=== PATIENT | male | born 1950 | race Caucasian/White ===

== ENCOUNTER 2020-11-23 17:04 | Observation (INO) | payer MEDICARE, OTHER, SELFPAY ==
[2020-11-23] VITALS (9 sets, daily range): BP systolic 119–150; BP diastolic 72–94; PULSE 77–108; RESP 15–24; TEMP 36.3; O2SAT 95–100; BMI 31.6
--- NOTE | ~2020-11-23 | US_ITS ---
EXAMINATION: US carotid duplex BI EXAM DATE: 11/24/2020 11:17 INDICATION: Facial weakness, dysphasia. TECHNIQUE: Grayscale, color and pulsed Doppler images of the cervical carotid arteries were obtained . The degree of vessel stenosis is placed in one of the following categories: normal, <50% stenosis, 50-69% stenosis, >=70% stenosis but less than near-occlusion, near-occlusion, or occlusion. Note that percent stenosis relative to normal distal artery lumen diameter is indirectly measured from velocit y measurements as described by Trevor, et al. Radiology 2003; 229:340-346. There is no prior study fo r comparison. FINDINGS: RIGHT SIDE: Right common carotid artery peak systolic velocity (PSV in cm/s): 80 Right bulb/internal carotid artery peak systolic velocity (PSV in cm/s): 57 Right internal carotid artery end diastolic velocity (EDV in cm/s): 20 Right ICA/CCA peak systolic ratio: 0.7 Right external carotid artery peak systolic velocity (PSV in cm/s): 70 Right vertebral artery antegrade flow: yes There is no focal plaque identified. LEFT SIDE: Left common carotid artery peak systolic velocity (PSV in cm/s): 85 Left bulb/internal carotid artery peak systolic velocity (PSV in cm/s): 64 Left internal carotid artery end diastolic velocity (EDV in cm/s): 22 Left ICA/CCA peak systolic ratio: 0.7 Left external carotid artery peak systolic velocity (PSV in cm/s): 91 Left vertebral artery antegrade flow: yes There is minimal carotid bulb plaque. Velocity and Doppler waveforms in the common and internal carotid arteries is normal. IMPRESSION: 1. Normal right internal carotid artery. 2. Less than 50 percent stenosis in the left internal carotid artery. Reviewed, dictated and finalized at location B.
--- NOTE | ~2020-11-23 | CT_ITS ---
EXAMINATION: CT brain wo con DATE: 11/23/2020 18:27 INDICATION: Slurred speech. TECHNIQUE: Computed tomography (CT) of the head was performed without intravenous contrast. The mA wa s adjusted according to patient size. Iterative reconstruction technique was employed. The dose-lengt h product was 681.00 mGy-cm. COMPARISON: None FINDINGS: There is no intracranial hemorrhage, acute infarction, or abnormal intracranial mass lesion . The ventricles are normal in size. There are likely changes of ocular lens replacement surgeries. T here is mild mucosal thickening in the paranasal sinuses. The mastoid air cells are normal. IMPRESSION: 1. Normal brain. Reviewed, dictated and finalized at location A. IMPRESSION: 1. Normal brain.
--- NOTE | ~2020-11-23 | CT_ITS ---
EXAMINATION: CT soft tissue neck w con DATE: 11/23/2020 18:27 INDICATION: Tongue swelling. Abscess. TECHNIQUE: Computed tomography (CT) of the neck was performed with 75 mL Omnipaque-350 intravenous co ntrast. Automated exposure control and iterative reconstruction technique were employed. The dose-leida gth product was 600.79 mGy-cm. COMPARISON: None FINDINGS: There are likely changes of ocular lens replacement surgeries. There are no pathologically enlarged lymph nodes. There is mild plaque in the proximal internal carotid arteries with 0% stenosis relative to normal distal artery lumen diameters. The palatine tonsils and lingual tonsils are raissa l. There is no abscess. There is mild mucosal thickening in the paranasal sinuses. There is moderate cervical spondylosis. IMPRESSION: 1. No abscess. Reviewed, dictated and finalized at location A. IMPRESSION: 1. No abscess.
--- NOTE | ~2020-11-23 | MR_ITS ---
EXAMINATION: MR brain/brain stem wo/w con EXAM DATE: 11/25/2020 10:29 INDICATION: Facial weakness, difficulty speaking. TECHNIQUE: Magnetic resonance imaging (MRI) of the brain/brain stem obtained without contrast. Sagit jaylen T1, axial diffusion, gradient echo (T2*), T1, T2, FLAIR sequences obtained. Patient was then inj ected with 20 cc intravenous Multihance contrast. Axial and coronal postcontrast T1 weighted sequence s obtained. Correlation is made to head CT from 11/23/2020. FINDINGS: There are no areas of restricted diffusion to suggest acute infarction. There is no acute hemorrhage seen on the T2*, a hemosiderin sensitive sequence. No intraparenchymal brain mass lesion. There is mild periventricular and subcortical T2/FLAIR signal hyperintensity, nonspecific but probab ly related to small vessel ischemic disease (microangiopathy). There is mild prominence of the sulc i and ventricles related to cerebral atrophy. There are no extra-axial collections. Flow voids are seen in the cerebral arteries on the T2-weighted sequences consistent with their expected patency. Patient has had bilateral ocular lens surgery. Soft tissue is unremarkable. There are no areas of a bnormal enhancement on the postcontrast images. IMPRESSION: 1. No acute intracranial findings. 2. Mild age related findings. Reviewed, dictated and finalized at location B.
--- NOTE | ~2020-11-23 | XR_ITS ---
EXAMINATION: XR chest 2V DATE: 11/24/2020 10:58 INDICATION: Aspiration TECHNIQUE: PA and lateral views of the chest were obtained. COMPARISON: None FINDINGS: Streaky opacities at the left costophrenic angle and favor atelectasis over aspiration or pneumonia. Calcified nodule at the posterior medial right lung base consistent with old granulomatous disease. N o pulmonary edema, pleural effusion or pneumothorax. The cardiomediastinal silhouette is normal. Mild thoracic kyphosis with minimal likely physiologic anterior wedging at a couple lower thoracic verteb ral bodies. Mild thoracic spondylosis. IMPRESSION: 1. Mild streaky opacities at the left costophrenic angle and favor atelectasis over aspiration or pne umonia. Reviewed, dictated and finalized at location A. IMPRESSION: 1. Mild streaky opacities at the left costophrenic angle and favor atelectasis over aspiration or pneumonia.
[2020-11-23] MEDS: SODIUM CHLORIDE 0.9% IV 500 ML 999 ML IV CONT (17:39)
[2020-11-23] MEDS: FAMOTIDINE 20 MG/2 ML VIAL IV PUSH ×2 (17:40→21:39)
[2020-11-23 17:44] LABS: Basophils Absolute Auto 0.1 K/mm3 (0.0-0.1); Basophils Percent Auto 0.8 % (0.2-1.2); Eosinophils Absolute Auto 0.2 K/mm3 (0-0.3); Eosinophils Percent Auto 2.5 % (0-4.4); Hematocrit 49.2 % (42.0-52.0); Hemoglobin 17.1 g/dL (14.0-18.0); Immature Granulocyte Absolute 0.02 K/mm3 (0.00-0.031); Immature Granulocyte Percent A 0.2 % (0-0.5); Lymphocytes Absolute Auto 2.55 K/mm3 (0.9-3.2); Lymphocytes Percent Auto 27.3 % (18.3-44.2); Mean Corpuscular HGB Conc 34.8 g/dl (32-36); Mean Corpuscular Hemoglobin 31.5 pg (26-34); Mean Corpuscular Volume 90.8 fl (80-100); Mean Platelet Volume 9.6 fl (7.4-10.4); Monocytes Absolute Auto 0.7 K/mm3 (0.1-0.6); Monocytes Percent Auto 7.1 % (2.6-8.5); Neutrophils Absolute Auto 5.8 K/mm3 (1.3-6.7); Neutrophils Percent Auto 62.1 % (45.5-73.1); Platelet Count Result 180 k/mm3 (150-375); Red Blood Count 5.42 M/mm3 (4.6-6.20); Red Cell Distribution Width 12.9 % (11.5-14.5); White Blood Count 9.3 K/mm3 (4.5-10.0)
[2020-11-23] MEDS: diphenhydrAMINE HCl INJ 50 MG/ML VIAL 25 MG IV PUSH (17:51)
[2020-11-23 17:54] LABS: Alanine Aminotransferase 35 U/L (4-50); Albumin Level 4.7 g/dL (3.5-5.1); Alkaline Phosphatase 45 U/L (38-126); Anion Gap 11 mmol/L (8-16); Aspartate Amino Transferase 38 U/L (17-59); Bilirubin,Total 0.9 mg/dL (0.2-1.3); Blood Urea Nitrogen 12 mg/dL (9-20); Calcium 9.6 mg/dL (8.4-10.2); Carbon Dioxide 24 mmol/L (22-30); Chloride 105 mmol/L (98-107); Estimated CRCL calculation 80 ml/min; Estimated Glomerular Filt Rate > 60; Glucose 111 mg/dL (75-110); INR 1.1; Potassium 3.8 mmol/L (3.4-5.0); Prothrombin Time 14.3 Seconds (11.1-14.7); Sodium 140 mmol/L (137-145)
[2020-11-23 17:55] LABS: Partial Thromboplastin Time 35.5 SECONDS (22.3-36.8)
[2020-11-23 18:08] LABS: Add Urine Microscopic? YES; Appearance Urine Clear (Clear); Bilirubin Urine Negative (Negative); Blood Urine Negative (Negative); Color Urine Yellow (Yellow); Glucose Urine UA 3+ mg/dL (Negative); Ketones Urine 1+ mg/dL (Negative); Leukocyte Esterase Ur Negative LEU/UL (Negative); Nitrate Urine Negative (Negative); Protein Urine Negative (Negative); RBC Urine 0-2 /hpf (0-2); Specific Grav Ur 1.018 (1.001-1.035); Urobilinogen Urine Negative mg/dL (<2.0); WBC Urine 0-3 /hpf
--- NOTE | 2020-11-23 19:00 | PC.NURSE ---
Assumed care of pt. at this time. Report from OCTAVIO Mullins
--- NOTE | 2020-11-23 19:42 | ED.GENADULT ---
HPI - General Adult General Chief complaint: Allergic Reaction Stated complaint: allergic reaction Time Seen by Provider: 11/23/20 17:11 Source: patient Mode of arrival: ambulatory Limitations: no limitations History of Present Illness HPI narrative: Patient is a 70-year-old male who for the last 3 weeks has had progressive difficulty with speaking and swallowing patient was seen by his primary care and had an urgent care and was thought that he may have thrush patient denies similar occurrence or history of thrush or any obvious causes for thrush patient is a diabetic and has had well-controlled sugars and denies other significant past medical history patient on arrival has muffled speech that worsens with more speaking or movement of the jaw. Patient notes that he has had difficulty with eating and swallowing and often has to even try and push the food from his jaws to where he can swallow. Patient has only been seen in urgent care and by primary care for this. Patient has been taking oral antifungals with no improvement Related Data Allergies Allergy/AdvReac Type Severity Reaction Status Date / Time No Known Allergies Allergy Verified 11/23/20 19:48 Review of Systems Review of Systems: All systems reviewed & are unremarkable except as noted in HPI and below PMFSH Past Medical History Medical History Diabetes mellitus Social History Social History (Updated 11/23/20 @ 19:46 by Jono Fallon PA-C) Smoking status: Never smoker Gender identity (if verbalized by the patient): Male Exam Narrative: Exam Narrative: GENERAL: Well-appearing, well-nourished, and in no acute distress. HEAD: Normocephalic, atraumatic. EYES: PERRLA and EOMI. ENT: Nares clear, no rhinorrhea or epistaxis. Mucous membranes moist. Oropharynx without tonsillar hypertrophy exudate or other lesions. NECK: Supple. No adenopathy or masses. No carotid bruits or JVD CHEST: Clear to auscultation. No respiratory distress. No wheezes rales or rhonchi HEART: Regular rate and rhythm. No murmur heard. Normal peripheral pulses. ABDOMEN: Soft, nontender, nondistended EXTREMITIES: Normal range of motion. No edema. SKIN: Warm, dry, no rash. NEURO: No focal deficits. Alert and oriented x3. Cranial nerves II through XII grossly intact. Speech becomes muffled with increased speaking and then improves with rest. Cerebellar intact. Motor and sensory intact and symmetrical in extremities. PSYCH: Normal mood and affect. Course Course Emergency Course: Patient presented with findings that appear to be more consistent with neurologic dysfunction opposed to thrush such as myasthenia gravis patient will be placed in hospital with neurological evaluation to the hospitalist team. Patient agrees with this. Patient hemodynamically stable at this time with ABCs intact. Case was discussed with the hospitalist who is agreed to accept the patient. Consultations Consultation #1: Discussed case with the neurologist Dr. Pritchard who recommends MRI of the brain and will work the patient up for myasthenia and other neurologic and autoimmune causes patient will also have a swallow study This case with the hospitalist lisa who is agreed to accept the patient Date: 11/23/20 Time: 19:48 Vital Signs Vital signs: Vital Signs Temperature 97.3 F L 11/23/20 17:11 Pulse Rate 108 H 11/23/20 17:11 Respiratory Rate 20 11/23/20 17:11 Blood Pressure 150/94 H 11/23/20 17:11 Pulse Oximetry 100 11/23/20 17:11 Temperature 97.3 F L 11/23/20 17:11 Pulse Rate 81 11/23/20 19:22 Respiratory Rate 19 11/23/20 19:22 Blood Pressure 130/77 11/23/20 19:22 Pulse Oximetry 96 11/23/20 19:22 Medical Decision Making MDM Narrative Medical decision making narrative: Patient presented with muffled speech with concern for neurologic or autoimmune dysfunction patient is hemodynamically stable resting comfortabl
--- NOTE | 2020-11-23 19:50 | ECG_ITS ---
Measurements Intervals [place] Rate: 85 P: 2 VA: 166 QRS: -28 QRSD: 106 T: 1 QT: 371 QTc: 441 Interpretive Statements SINUS RHYTHM BORDERLINE T WAVE ABNORMALITY- INFERIOR LEADS BORDERLINE ECG Electronically Signed On 11-24-2020 6:20:33 CDT by Pedro Quiroga D.O.
--- NOTE | 2020-11-23 20:48 | ADMGEN ---
This patient, Sudarshan Kim, was admitted to Medical Room 251-. Patient/family oriented to hospital policies and general routines including ID bracelet, bed and alarms, visiting hours, pain management, procedures, bathroom and other care routines, personal items, smoking policy, room service/diet, and visiting hours. Information on how to activate the Rapid Response Team has been discussed. Patient/Family are encouraged to report perceived risks to care and to ask questions if they do not understand what they are told or what they should do.
[2020-11-23] MEDS: LACTATED RINGERS 1,000 ML 125 ML IV CONT (21:39)
--- NOTE | 2020-11-23 22:40 | PM.IMHP ---
H&P: HPI History of Present Illness Date/Time: 11/23/20 22:40 The patient is a 70 yo male who present to the ED with progressive difficulty with speech and drooling and pooling of saliva since apst 3 weeks. he reports the symptoms are intermittent. It gets gradually gets worse as the day goes by. He typically feels normal in the morning. He had been to the urgent care witht eh issue and thought it was related to thrush and was treated for the same. He has hx of diabetes but its pretty well controlled. He rpeots no weakness in arms or legs, no fever, chills, sob, chest pain, no lymph glands. He rpeorts he progressively get difficulty in swaallowing and also chewing. often has to even try and push the food from his jaws. he also notes difficulty in protruding his tongue out of his mouth,which normally he can do that. Chief Complaint: difficulty speaking Review of Systems Review of Systems: Narrative: - CONSTITUTIONAL: Denies weight loss, fever and chills. - HEENT: Denies changes in vision and hearing - RESPIRATORY: Denies SOB and cough. - CV: Denies palpitations and CP. - GI: Denies abdominal pain, nausea, vomiting and diarrhea. - : Denies dysuria and urinary frequency. - MSK: Denies myalgia and joint pain. - SKIN: Denies rash and pruritus. - NEUROLOGICAL: Denies headache and syncope. - PSYCHIATRIC: Denies recent changes in mood. Denies anxiety and depression. All systems reviewed & are unremarkable except as noted in HPI and below PMFSH Past Medical History Medical History Diabetes mellitus Family History Family History (Updated 11/23/20 @ 21:10 by Marta Montelongo RN) Father Cerebrovascular accident Social History Social History (Updated 11/23/20 @ 19:46 by Jono Fallon PA-C) Smoking status: Never smoker Alcohol intake: never Substance use: never Substance use type: does not use Gender identity (if verbalized by the patient): Male Spiritual care concerns: No Meds Home Medications and Allergies Home Medications Medication Instructions Recorded Confirmed Type Cialis 2 mg PO DAILY 11/23/20 11/23/20 History clotrimazole 10 mg MUCOUS MEMBRANE USEASDIRECTD 11/23/20 11/23/20 History dulaglutide [Trulicity] 1.5 mg SUBCUT WEEKLY 11/23/20 11/23/20 History empagliflozin [Jardiance] 25 mg PO DAILY 11/23/20 11/23/20 History fluconazole 100 mg PO DAILY 11/23/20 11/23/20 History ipratropium bromide 1 spray INTRANASAL PRN PRN 11/23/20 11/23/20 History metformin 2,000 mg PO DAILY 11/23/20 11/23/20 History Allergies Allergy/AdvReac Type Severity Reaction Status Date / Time No Known Allergies Allergy Verified 11/23/20 19:48 Vital Signs Vital Signs - 24 hr 11/23/20 17:11 11/23/20 17:40 11/23/20 18:35 Temperature 97.3 F L Pulse Rate 108 H 98 90 Respiratory Rate 20 15 24 H Blood Pressure 150/94 H 119/72 138/89 Pulse Oximetry 100 95 99 11/23/20 19:22 11/23/20 20:21 11/23/20 21:40 Temperature 97.3 F L Pulse Rate 81 89 83 Respiratory Rate 19 20 16 Blood Pressure 130/77 138/88 150/83 H Pulse Oximetry 96 98 99 Exam Narrative: Exam Narrative: GENERAL: Well-appearing, well-nourished, and in no acute distress. HEAD: Normocephalic, atraumatic. EYES: PERRLA, left eye with midly weak abduction ENT: Nares clear, no rhinorrhea or epistaxis. Mucous membranes moist. Oropharynx with left tonsillar pillar swellig noted, no exudate noted NECK: Supple. No adenopathy or masses. No carotid bruits or JVD CHEST: Clear to auscultation. No respiratory distress. No wheezes rales or rhonchi HEART: Regular rate and rhythm. No murmur heard. Normal peripheral pulses. ABDOMEN: Soft, nontender, nondistended EXTREMITIES: Normal range of motion. No edema. SKIN: Warm, dry, no rash. NEURO: No focal deficits. Alert and oriented x3. Speech becomes muffled with increased speaking and then improves with rest. Cerebellar intact. Mot
[2020-11-23 22:51] LABS: Glucose Point of Care 113 (65-105)
[2020-11-23 23:34] LABS: Free T4 Free Thyroxine 0.93 ng/mL (0.78-2.19)
[2020-11-24] VITALS (11 sets, daily range): BP systolic 115–135; BP diastolic 66–81; PULSE 73–95; RESP 14–22; TEMP 36–36.4; O2SAT 94–100
--- NOTE | 2020-11-24 | ECHO_ITS ---
Patient Info Name: Sudarshan Kim Age: 70 years : 1950 Gender: Male Ht: 73 in Wt: 239 lbs BSA: 2.39 m2 HR: 86 bpm BP: 130 / 69 mmHg Technical Quality: Good Exam Date: 11/24/2020 12:04 PM Exam Location: [facility] Exam Room: 251 Patient Status: Inpatient Admit Date: 11/23/2020 Staff Ordering Physician: Arlen Jackson NP Power Press Operator: Ananbel Nolasco RDCS Attending Provider: Arlen Jackson NP Referring Physician: Manuel STOCKTON; Exam Type: CA echo doppler color flow Study Info Indications - facial weakness dysphagia Complete two-dimensional, color flow and Doppler transthoracic echocardiogram is performed. Summary 1. Complete two-dimensional, color flow and Doppler transthoracic echocardiogram is performed. 2. Left ventricular chamber dimension is normal. 3. Left ventricular systolic function is normal, estimated at 60-65%. 4. The left ventricular diastolic function is grade I diastolic dysfunction. 5. E/e' 11 is mildly elevated. 6. Left atrial chamber dimension is moderately enlarged. 7. There is mild aortic valve sclerosis. 8. There is mild mitral valve regurgitation. 9. No pulmonary hypertension, estimated pulmonary arterial systolic pressure is 27 mmHg. Left Ventricle E/e' 11 is mildly elevated. Left ventricular chamber dimension is normal. Left ventricular systolic function is normal, estimated at 60-65%. The left ventricular diastolic function is grade I diastolic dysfunction. Right Ventricle Right ventricular chamber dimension is normal. Right ventricular systolic function is normal. Left Atria Left atrial chamber dimension is moderately enlarged. Right Atria Right atrial chamber dimension is normal. Aortic Valve The aortic valve is trileaflet. There is mild aortic valve sclerosis. There is no aortic valve stenosis. There is no aortic valve regurgitation. Pulmonic Valve There is no pulmonic regurgitation. Mitral Valve There is no mitral valve stenosis. There is mild mitral valve regurgitation. Tricuspid Valve There is no tricuspid valve regurgitation. No pulmonary hypertension, estimated pulmonary arterial systolic pressure is 27 mmHg. Pericardium/Pleural There is no pericardial effusion. Inferior Vena Cava Inferior vena cava is not well visualized. Aorta The aortic root size at the sinus of Valsalva is normal. Left Ventricular Outflow Tract Name Value Normal LVOT 2D LVOT Diameter 2.1 cm LVOT Doppler LVOT Peak Gradient 4 mmHg LVOT Mean Gradient 3 mmHg LVOT VTI 22 cm LVOT VTI/AV VTI Ratio 0.9 LVOT Stroke Volume 74 ml LVOT CO 15.7 l/min LVOT CI 6.6 l/min/m2 Pulmonic Valve Name Value Normal PV Doppler
[2020-11-24 05:36] LABS: Basophils Absolute Auto 0.1 K/mm3 (0.0-0.1); Basophils Percent Auto 0.6 % (0.2-1.2); Eosinophils Absolute Auto 0.2 K/mm3 (0-0.3); Eosinophils Percent Auto 2.6 % (0-4.4); Hematocrit 45.5 % (42.0-52.0); Hemoglobin 15.4 g/dL (14.0-18.0); Immature Granulocyte Absolute 0.02 K/mm3 (0.00-0.031); Immature Granulocyte Percent A 0.3 % (0-0.5); Lymphocytes Absolute Auto 2.16 K/mm3 (0.9-3.2); Lymphocytes Percent Auto 27.2 % (18.3-44.2); Mean Corpuscular HGB Conc 33.8 g/dl (32-36); Mean Corpuscular Hemoglobin 31.1 pg (26-34); Mean Corpuscular Volume 91.9 fl (80-100); Mean Platelet Volume 9.5 fl (7.4-10.4); Monocytes Absolute Auto 0.7 K/mm3 (0.1-0.6); Monocytes Percent Auto 9.1 % (2.6-8.5); Neutrophils Absolute Auto 4.8 K/mm3 (1.3-6.7); Neutrophils Percent Auto 60.2 % (45.5-73.1); Platelet Count Result 155 k/mm3 (150-375); Red Blood Count 4.95 M/mm3 (4.6-6.20); White Blood Count 7.9 K/mm3 (4.5-10.0)
[2020-11-24 05:52] LABS: Alanine Aminotransferase 30 U/L (4-50); Alkaline Phosphatase 34 U/L (38-126); Anion Gap 7 mmol/L (8-16); Aspartate Amino Transferase 29 U/L (17-59); Bilirubin,Total 0.7 mg/dL (0.2-1.3); Blood Urea Nitrogen 11 mg/dL (9-20); Calcium 8.7 mg/dL (8.4-10.2); Carbon Dioxide 26 mmol/L (22-30); Chloride 106 mmol/L (98-107); Estimated CRCL calculation 80 ml/min; Estimated Glomerular Filt Rate > 60; Glucose 101 mg/dL (75-110); Potassium 3.9 mmol/L (3.4-5.0); Sodium 139 mmol/L (137-145)
[2020-11-24 06:19] LABS: Glucose Point of Care 106 (65-105)
[2020-11-24] MEDS: FAMOTIDINE 20 MG/2 ML VIAL IV PUSH ×2 (08:20→20:21)
[2020-11-24] MEDS: LACTATED RINGERS 1,000 ML 75 ML IV CONT (08:20)
[2020-11-24 08:39] LABS: Lactic Acid Reflex 1.7 mmol/L (0.7-2.1)
[2020-11-24 08:53] LABS: Ammonia 10 umol/L (9-30)
--- NOTE | 2020-11-24 10:03 | PM.IMPN ---
Progress Note: A&P Assessment and Plan (1) Dysphagia: Code(s): R13.10 - Dysphagia, unspecified Status: Acute Assessment and Plan: Speech difficulty: intermittent. Progressively worsening as day or level of activity progresses. Protruding tongue, dysphagia, swallowing and chewing difficulty, Slurred speech, pooling of saliva and drooling. suspicious for myasthenia gravis. Family history: father passed at 85yo from CVA. ACh R ab ordered and pending. GORAN pending. Group A strep pending. Immunology pending. Appreicate and following Neurology recommendations. patient reports A1C was 7.3 on November 21 TSH was 3.[address] head is normal. MRI brain WWO contrast ordered. Received his 2nd Moderna COVID vaccination on October 12, then on October 28 his family/son and the patient noticed that he was slurring and drooling at dinner. He tried to F/U with Urgent care and his PCP for treatment - but with no resolution. UA clear, LFTs ok. Pyridostigmine QID started. Nursing staff reported to me that he seemed to improve with the first dose today. Continue telemetry and monitoring. (2) Dysarthria: Code(s): R47.1 - Dysarthria and anarthria Status: Acute Assessment and Plan: It is important to time his Pyridostigmine QID to be given 15-30 minutes prior to his 3-4 meals or snacks. Will need patient education prior to discharge regarding this, so he understands timing and effects of this medication to his lifestyle. (3) Speech abnormality: Code(s): R47.9 - Unspecified speech disturbances Status: Acute Assessment and Plan: suspicious for myasthenia gravis. treating as such consulting PT/OT/ST with new diagnosis. Subjective Date/time seen: 11/24/20 10:03 Sudarshan reports having his 2nd Moderna vaccine on October 12. Then on October 28 he went out to dinner with his son. That's when his family as well as himself noticed that he was having slurred speech difficulty with drooling and excess or uncontrolled saliva. Today he continues to have these same symptoms and stated that his mouth felt like he had had a dental procedure, as if it had been numbed with a local numbing medication for dental work. Sudarshan's stated that when he 1st wakes up in the morning, the symptoms are very mild are non-existent. But the more he talks or the more he exerts himself or his activity level increases, the symptoms worsen progressively. He has no deficits noted in his arms or legs or base motor skills. His vision and eyes are not affected. Ordered ECHO and Carotid Dopplers for today. Neurologist started medication Pyridostigmine QID and will get MRI. He may improve in 30-60 minutes and improvements may last 3-4 hours, until next dose. Patient will remain hospitalized for the further testing and to monitor effects of medication. Continue Telemetry monitoring. Neurologist during treatment for Myasthenia Gravis. Will monitor to see how patient tolerates new medication. Review of Systems Review of Systems: All systems reviewed & are unremarkable except as noted in HPI and below Constitutional: Constitutional: Reports as per HPI, Denies excessive sweating, Denies headache(s), Denies increased appetite, Denies snoring and Denies weight gain Eyes: Eyes: Reports as per HPI, Denies exophthalmos, Denies diplopia, Denies floaters and Denies loss of peripheral vision ENT: Reports as per HPI, Reports Normal hearing present, Denies facial pain, Denies headache(s), Denies mouth pain, Denies odynophagia, Denies tinnitus and Reports other (drooling, saliva pooling,slurred speech) Cardiovascular: Cardiovascular: Reports as per HPI, Denies chest pain, Denies lightheadedness and Denies dyspnea Respiratory: Respiratory: Reports as per HPI, Denies chest congestion, Denies cough, Denies hemoptysis and Denies snoring Gastrointestinal: Gastrointestinal: Reports as per HPI, Denies melena and Denies odynophagia Genitourinary: Genitourinary:
--- NOTE | 2020-11-24 10:57 | WPDNEURCNPN ---
Assessment and Plan Assessment and plan (1) Myasthenia gravis: Code(s): G70.00 - Myasthenia gravis without (acute) exacerbation Status: Acute Additional Plan history of speech dysfunction in addition to swallowing difficulties particularly as the day goes on in addition to the history of underlying diabetes mellitus and the clinical examination today is compatible with bilateral ptosis more prominent on the right as compared to the left in addition to somewhat dysphonic speech findings are suggestive of neuromuscular dysfunction the investigations have been order and the patient will be started on Mestinon 1 tab 3 times a day to seizure response in the meantime we will obtain the x-ray of the chest, MRI of the brain to rule out the possibility of brain stem involvement and further adjustment will be done according Consult date: 11/24/20 Time Seen: 10:30 HPI: Sudarshan Kim is a 70 year old male admitted to the hospital through the emergency room with the complaints of progressive difficulties in speech and drooling and pooling of saliva over the last several weeks of intermittent nature and getting gradually worse as the day goes by typically feels normal in the morning has been to the urgent care where he has been treated for the possible thrush in addition he does have ongoing history of diabetes is fairly well controlled he did not complain of any weakness of upper or lower extremities but he did complain of progressively getting swallowing difficulties and chewing and at times has to push the foot from his jaw, has no history of smoking drinking or substance abuse has been taking multiple medications which include the clotrimazole , [place] andjardiance. pertinent investigation up until non to the CT scan of the head and soft tissue of the neck, normal routine blood studies, INR 1.1 [facility] Past Medical History Medical History Diabetes mellitus Family History Family History Father Cerebrovascular accident Social History Social History Smoking status: Never smoker Alcohol intake: never Substance use: never Substance use type: does not use Gender identity (if verbalized by the patient): Male Spiritual care concerns: No Meds Home Medications and Allergies Home Medications Medication Instructions Recorded Confirmed Type Cialis 2 mg PO DAILY 11/23/20 11/23/20 History clotrimazole 10 mg MUCOUS MEMBRANE USEASDIRECTD 11/23/20 11/23/20 History dulaglutide [Trulicity] 1.5 mg SUBCUT WEEKLY 11/23/20 11/23/20 History empagliflozin [Jardiance] 25 mg PO DAILY 11/23/20 11/23/20 History fluconazole 100 mg PO DAILY 11/23/20 11/23/20 History ipratropium bromide 1 spray INTRANASAL PRN PRN 11/23/20 11/23/20 History metformin 2,000 mg PO DAILY 11/23/20 11/23/20 History Allergies Allergy/AdvReac Type Severity Reaction Status Date / Time clotrimazole Allergy Swelling Verified 11/24/20 02:04 Vital Signs Vital Signs - 24 hr 11/23/20 17:11 11/23/20 17:40 11/23/20 18:35 Temperature 36.3 C L Pulse Rate 108 H 98 90 Respiratory Rate 20 15 24 H Blood Pressure 150/94 H 119/72 138/89 Pulse Oximetry 100 95 99 11/23/20 19:22 11/23/20 20:21 11/23/20 21:40 Temperature 36.3 C L Pulse Rate 81 89 83 Respiratory Rate 19 20 16 Blood Pressure 130/77 138/88 150/83 H Pulse Oximetry 96 98 99 11/23/20 22:47 11/23/20 22:52 11/23/20 23:12 Temperature Pulse Rate 77 Respiratory Rate 16 Blood Pressure Pulse Oximetry 99 11/24/20 00:00 11/24/20 02:00 11/24/20 02:45 Temperature 36.3 C L Pulse Rate 80 86 Respiratory Rate 21 H 14 Blood Pressure 134/66 Pulse Oximetry 100 11/24/20 04:00 11/24/20 06:00 11/24/20 08:00 Temperature 36.4 C Pulse Rate 73 83 95 Respiratory Rate 20 Blood Pressure 129/68 Pulse Oximetry 99 Exam Const:
[2020-11-24 12:26] LABS: Glucose Point of Care 86 (65-105)
[2020-11-24 16:27] LABS: Glucose Point of Care 156 (65-105)
[2020-11-24 21:16] LABS: Glucose Point of Care 136 (65-105)
[2020-11-25] VITALS: BP 103/51; PULSE 78; PULSE 88; RESP 20; TEMP 36.4; O2SAT 99
[2020-11-25 03:23] VITALS: RESP 16
[2020-11-25 04:00] VITALS: BP 115/70; PULSE 78; PULSE 86; RESP 20; TEMP 36.3; O2SAT 97
[2020-11-25 05:57] LABS: Anion Gap 5 mmol/L (8-16); Blood Urea Nitrogen 11 mg/dL (9-20); Calcium 8.8 mg/dL (8.4-10.2); Carbon Dioxide 29 mmol/L (22-30); Chloride 104 mmol/L (98-107); Estimated CRCL calculation 73 ml/min; Estimated Glomerular Filt Rate > 60; Glucose 120 mg/dL (75-110); Sodium 138 mmol/L (137-145)
[2020-11-25 08:00] VITALS: PULSE 81
[2020-11-25] MEDS: FAMOTIDINE 20 MG/2 ML VIAL IV PUSH (08:35)
[2020-11-25 09:04] LABS: Glucose Point of Care 127 (65-105)
[2020-11-25 10:00] VITALS: BP 124/71; PULSE 80; RESP 16; TEMP 36.8; O2SAT 99
--- NOTE | 2020-11-25 11:32 | PM.DS ---
DS: Admitting Diagnosis Admitting Diagnosis Admitting Diagnosis: Dysarthria DS: Discharge Diagnosis Discharge Diagnosis (1) Myasthenia gravis: Code(s): G70.00 - Myasthenia gravis without (acute) exacerbation Status: Acute Assessment and Plan: Symptom onset 10/28/2020. Patient presented with intermittent dysphagia and dysarthria which typically worsened throughout the day as level of activity progressed. Symptoms were concerning for myasthenia gravis and was treated as such. Acute CVA ruled out by negative head CT and brain MRI, echocardiogram, and carotid Doppler. He was seen in consultation by Neurology and pyridostigmine was initiated QID. He did have symptomatic improvement with initiation of medication. AChR, GORAN, and serum immunofixation pending. He will need close neurology follow-up as an outpatient. (2) Dysphagia: Code(s): R13.10 - Dysphagia, unspecified Status: Acute Assessment and Plan: [place] to be secondary to suspected myasthenia gravis. Speech therapy eval performed with no evidence of aspiration. Symptomatic improvement with medication as above. (3) Vaccine reaction: Code(s): T50.Z95A - Adverse effect of other vaccines and biological substances, initial encounter Status: Acute Assessment and Plan: Patient received second dose of Moderna COVID-19 vaccination on 10/12/20 and developed neurologic symptoms on 10/28/20. I spoke with neurologist who recommended reporting of symptoms to [facility], which I will initiate. (4) Diabetes mellitus: Code(s): E11.9 - Type 2 diabetes mellitus without complications Status: Inactive Assessment and Plan: A1c is 7.3. Blood sugars controlled. Continue metformin, jardiance, and trulicity. DS: Summary Hospital Course Reason for hospitalization: Dysarthria, dysphagia Hospital Course: Date of admission: 11/23/2020 Date of discharge: 11/25/2020 Sudarshan Kim is a 70-year-old male with a history of diabetes mellitus who presented to the emergency department on 11/23/2020 with progressive difficulty with speaking and swallowing. He has been seen by provider in urgent care as well as his primary care provider and treated for thrush given his diabetes with no improvement of his symptoms. Noted that his symptoms became worse throughout the day a more fatigued. Upon presentation to the ED was mildly additional vital signs CBC and BMP, urinalysis without signs of infection, head CT negative for any acute findings and soft tissue 90 CT with no evidence of abscess. He was admitted to the hospitalist service for further evaluation and management and seen in consultation by Neurology. Please see above for further details. His symptoms were felt to be consistent with myasthenia gravis. He was initiated on medication for such with symptomatic improvement. Given onset of symptoms in relation to COVID-19 vaccination, report will be made to [facility] per neurology recommendations. He will need to have close follow-up with Neurology. Given his overall improvement, he was determined to no longer require inpatient care and was felt to be stable for discharge. He was very eager for discharge home where he has close family support. We discussed worrisome signs and symptoms for which to return and he was educated on his medications. He was discharged in hemodynamically stable condition on 11/25/2020. Status at Discharge Functional status at discharge: independent ambulation Overall status at discharge: patient is progressing back to baseline Time Spent with Patient Time attestation: Total time spent providing and/or coordinating discharge services: 45 minutes Time spent: Greater than 30 minutes Exam Narrative: Exam Narrative: Mr. Kim is a well-nourished, well-appearing 70-year-old male who is sitting in a chair by the bedside. He appears comfortable and is in NARD. Neuro: awake, alert and oriented x4, CN II-XII intact, s
[2020-12-02 23:42] LABS: Acetylchol Receptor Binding Ab 4.68 nmol/L
--- NOTE | 2020-12-12 17:44 | PC.NURSE ---
Patient called to nurses station with concerns regarding Pyridostigmine [place] medication prescribed by Dr. Pritchard. Per patient, this was prescribed QID to be taken 30 mins prior to meals and at bedtime. Up until now, medication has been helping his myasthenia gravis. However, he took a tablet prior to dinner and is still experiencing slurred speech and troubles swallowing. I called and spoke with Dr. Pritchard regarding patient concerns. Per Dr. Pritchard, patient should take another tablet for dinner, increase dose to 1.5 tabs QID tomorrow (45mg QID), and call office to schedule follow up appointment sooner than previous appt. Called patient back and updated him on Dr. Millan recommendations. Patient verbalized understanding.
== END 2020-11-25 12:28 | disposition home or self-care (01) ==
LOC: ANHED 19:50 → ANH2MED 20:13
PROVIDERS: Emergency Medicine Emergency Medical Services; Nurse Practitioner; Admitting Provider Internal Medicine; Emergency Provider Emergency Medicine; PCP Family Medicine; Visit Provider Physician Assistant
DX: G70.00 Myasthenia gravis without (acute) exacerbation (principal); T50.B95A Adverse effect of other viral vaccines, initial encounter; R13.10 Dysphagia, unspecified; R47.1 Dysarthria and anarthria; R47.9 Unspecified speech disturbances; E11.9 Type 2 diabetes mellitus without complications; I34.0 Nonrheumatic mitral (valve) insufficiency; I35.8 Other nonrheumatic aortic valve disorders; Z79.84 Long term (current) use of oral hypoglycemic drugs
CPT/HCPCS: 36415; 70450; 70491; 70553; 71046; 80048; 80053; 81001; 82140; 82948; 83605; 84238; 84439; 84443; 85025; 85610; 85730; 86038; 86334; 86335; 87880; 92522; 92610; 93005; 93306; 93880; 96361; 96374; 96375; 96376; 99285; A9270; A9577; G0378; J1200; J7040; J7120; Q9967

== ENCOUNTER → 2021-07-31 04:05 | Outpatient (CLI) | payer MEDICARE, SELFPAY ==
[2021-07-31 20:23] LABS: SARS-CoV-2 RNA PCR Positive
== END ==
PROVIDERS: PCP Family Medicine; Visit Provider Family Medicine
DX: U07.1 COVID-19 (principal)
CPT/HCPCS: C9803; U0003; U0005

== ENCOUNTER 2022-01-27 13:19 | Emergency (ER) | payer MEDICARE, SELFPAY ==
--- NOTE | ~2022-01-27 | US_ITS ---
EXAMINATION:US venous doppler LE LT INDICATION:Left leg swelling TECHNIQUE: Multiple grayscale, color flow and Doppler images of the left lower extremity deep venous systems were obtained and reviewed. COMPARISON:No prior studies for comparison. FINDINGS: There is deep venous thrombosis of the left femoral and popliteal veins. The remainder of t he left lower extremity veins are patent. IMPRESSION: 1: Deep venous thrombosis of the left femoral and popliteal veins. Reviewed, dictated and finalized at location A.
[2022-01-27 13:33] VITALS: BP 143/92; PULSE 97; RESP 16; TEMP 36.6; O2SAT 96
--- NOTE | 2022-01-27 14:59 | ED.EXTPRO ---
HPI - Extremity Problem General Chief complaint: Extremity Problem,Nontraumatic Stated complaint: left ankle and calf swelling Time Seen by Provider: 01/27/22 14:57 Source: patient Mode of arrival: ambulatory Limitations: no limitations History of Present Illness HPI Narrative: Patient is 71 years old white male drove himself to the ED from home complaining of left lower leg swelling noticed 2 days ago. Patient denies any trauma or anything unusual in his life over the last 2 weeks. Patient also denies any fever, chills, nausea, vomiting, abdominal pain, groin pain, trouble urinating or defecating. Patient reports that he is physically active and he walks almost daily. History of diabetes, myasthenia gravis. Patient does not smoke or drink or uses drugs. Related Data Home Medications Medication Instructions Recorded Confirmed Cialis 2 mg PO DAILY 11/23/20 06/21/21 clotrimazole 10 mg emilio 10 mg mucous membrane USEASDIRECTD 11/23/20 06/21/21 dulaglutide 1.5 mg/0.5 mL 1.5 mg subcut WEEKLY 11/23/20 06/21/21 subcutaneous pen injector (Trulicity) empagliflozin 25 mg tablet 25 mg PO DAILY 11/23/20 06/21/21 (Jardiance) fluconazole 100 mg tablet 100 mg PO DAILY 11/23/20 06/21/21 ipratropium bromide 21 mcg (0.03 1 spray intranasal PRN PRN Nasal 11/23/20 06/21/21 %) nasal spray Congestion metformin 500 mg tablet,extended 2,000 mg PO DAILY 11/23/20 06/21/21 release 24 hr pyridostigmine bromide 30 mg tablet 60 mg PO QID 03/13/21 06/21/21 Allergies Allergy/AdvReac Type Severity Reaction Status Date / Time clotrimazole Allergy Swelling Verified 06/21/21 14:31 Review of Systems Review of Systems: All systems reviewed & are unremarkable except as noted in HPI and below PMFSH Past Medical History Medical History Diabetes mellitus Family History Family History Father Cerebrovascular accident Social History Social History Smoking status: Never smoker Alcohol intake: never Substance use: never Substance use type: does not use Gender identity (if verbalized by the patient): Male Spiritual care concerns: No Exam Narrative: General appearance: Well-developed, well-nourished Skin: Normal color Head: Normocephalic, nontraumatic Eyes: Clear conjunctiva ENT: Oropharynx normal, ears normal, nose normal Neck: Supple, nontender Chest and respiratory: Airway patent, no respiratory distress, no accessory muscle use Heart: Regular rate/rhythm Abdomen: Soft, nontender, no organomegaly, quiet bowel sounds Vascular: Normal peripheral pulses, normal capillary refill. Musculoskeletal: Left lower leg below the knee examination showed diffuse swelling, 2+ edema, diffuse fullness at the calf muscle, no erythema, no bruises, no rash, no warmth, no wound or discharge Neurologic: Alert and oriented ?3, [employer] is normal as tested, no gross motor deficit Course Course Emergency Course: The radiologist, Dr. Kan, reports that patient have deep vein thrombosis distal femoral artery. Vital Signs Vital signs: Vital Signs Temperature 36.6 C 01/27/22 13:33 Pulse Rate 97 01/27/22 13:33 Respiratory Rate 16 01/27/22 13:33 Blood Pressure 143/92 H 01/27/22 13:33 Pulse Oximetry 96 01/27/22 13:33 Oxygen Delivery Room Air 01/27/22 13:33 Temperature 36.6 C 01/27/22 13:33 Pulse Rate 92 01/27/22 17:08 Respiratory Rate 18 01/27/22 17:08 Blood Pressure 140/88 01/27/22 17:08 Pulse Oximetry 98 01/27/22 17:08 Oxygen Delivery Room Air 01/27/22 13:33 [facility] -
[2022-01-27 16:41] LABS: Basophils Percent Auto 0.4 % (0.2-1.2); Eosinophils Absolute Auto 0.1 K/mm3 (0-0.3); Eosinophils Percent Auto 0.5 % (0-4.4); Hematocrit 45.8 % (42.0-52.0); Hemoglobin 15.9 g/dL (14.0-18.0); Immature Granulocyte Absolute 0.02 K/mm3 (0.00-0.031); Immature Granulocyte Percent A 0.2 % (0-0.5); Lymphocytes Absolute Auto 1.53 K/mm3 (0.9-3.2); Lymphocytes Percent Auto 14.7 % (18.3-44.2); Mean Corpuscular HGB Conc 34.7 g/dl (32-36); Mean Corpuscular Hemoglobin 31.9 pg (26-34); Mean Corpuscular Volume 91.8 fl (80-100); Monocytes Absolute Auto 0.5 K/mm3 (0.1-0.6); Monocytes Percent Auto 4.4 % (2.6-8.5); Neutrophils Absolute Auto 8.3 K/mm3 (1.3-6.7); Neutrophils Percent Auto 79.8 % (45.5-73.1); Platelet Count Result 134 k/mm3 (150-375); Red Blood Count 4.99 M/mm3 (4.6-6.20); Red Cell Distribution Width 12.9 % (11.5-14.5); White Blood Count 10.4 K/mm3 (4.5-10.0)
[2022-01-27 16:52] LABS: Alanine Aminotransferase 83 U/L (6-50); Albumin Level 4.4 g/dL (3.5-5.1); Alkaline Phosphatase 55 U/L (38-126); Anion Gap 9 mmol/L (8-16); Aspartate Amino Transferase 40 U/L (17-59); Bilirubin,Total 0.9 mg/dL (0.2-1.3); Blood Urea Nitrogen 14 mg/dL (9-20); Carbon Dioxide 22 mmol/L (22-30); Chloride 105 mmol/L (98-107); Estimated CRCL calculation 108 ml/min; Estimated Glomerular Filt Rate > 60; Glucose 208 mg/dL (65-110); Potassium 3.9 mmol/L (3.4-5.0); Sodium 136 mmol/L (137-145)
[2022-01-27 16:56] LABS: INR 1.2; Partial Thromboplastin Time 33.6 SECONDS (22.3-36.8); Prothrombin Time 14.8 Seconds (11.1-14.7)
[2022-01-27] MEDS: APIXABAN 5 MG TABLET 10 MG PO (17:04)
[2022-01-27 17:08] VITALS: BP 140/88; PULSE 92; RESP 18; O2SAT 98
== END 2022-01-27 17:10 | disposition home or self-care (01) ==
PROVIDERS: Emergency Provider Emergency Medicine; PCP Family Medicine
DX: I82.412 Acute embolism and thrombosis of left femoral vein (principal); I82.432 Acute embolism and thrombosis of left popliteal vein; E11.9 Type 2 diabetes mellitus without complications; Z79.84 Long term (current) use of oral hypoglycemic drugs
CPT/HCPCS: 36415; 80053; 85025; 85610; 85730; 93971; 99284; A9270

== ENCOUNTER 2023-02-08 09:38 | Outpatient (CLI) | payer MEDICARE, SELFPAY ==
[2023-02-08 10:26] LABS: Hematocrit 46.4 % (42.0-52.0); Mean Corpuscular HGB Conc 34.5 g/dl (32-36); Mean Corpuscular Hemoglobin 31.4 pg (26-34); Mean Corpuscular Volume 91.2 fl (80-100); Mean Platelet Volume 10.1 fl (7.4-10.4); Platelet Count Result 175 k/mm3 (150-375); Red Blood Count 5.09 M/mm3 (4.6-6.20); Red Cell Distribution Width 12.6 % (11.5-14.5); White Blood Count 7.1 K/mm3 (4.5-10.0)
[2023-02-08 10:53] LABS: Alanine Aminotransferase 60 U/L (6-50); Albumin Level 4.5 g/dL (3.5-5.1); Alkaline Phosphatase 72 U/L (38-126); Amylase 113 U/L (30-110); Anion Gap 10 mmol/L (8-16); Aspartate Amino Transferase 40 U/L (17-59); Bilirubin,Total 1.2 mg/dL (0.2-1.3); Blood Urea Nitrogen 15 mg/dL (9-20); Carbon Dioxide 26 mmol/L (22-30); Chloride 102 mmol/L (98-107); Estimated Glomerular Filt Rate > 60; Glucose 201 mg/dL (65-110); Lipase 229 U/L (23-300); Potassium 3.8 mmol/L (3.4-5.0); Sodium 138 mmol/L (137-145); Triglycerides 243 mg/dL (<150)
[2023-02-14 11:14] LABS: Immunoglobulin G, Serum 860 mg/dL (600-1540); Immunoglobulin G1 535 mg/dL (382-929); Immunoglobulin G2 246 mg/dL (241-700); Immunoglobulin G3 87 mg/dL (22-178)
== END 2023-02-08 09:39 | disposition home or self-care (01) ==
PROVIDERS: PCP Family Medicine; Visit Provider Nurse Practitioner
DX: K85.90 Acute pancreatitis without necrosis or infection, unspecified (principal); R74.8 Abnormal levels of other serum enzymes
CPT/HCPCS: 36415; 80053; 82150; 82784; 82787; 83690; 84478; 85027

== ENCOUNTER 2023-02-18 10:44 | Outpatient (CLI) | payer MEDICARE, SELFPAY ==
--- NOTE | ~2023-02-18 | US_ITS ---
Limited Abdominal Sonogram: Real-time sonographic imaging of the right upper quadrant was performed. Clinical History: Acute pancreatitis Findings: The liver appears normal with no evidence of mass lesion or bile duct dilatation. Main por jaylen vein demonstrates normal direction of flow. The gallbladder is well distended, and appears normal with no evidence of gallstone or wall thickening. The common bile duct measures 2 mm. The pancreas is obscured by bowel gas shadowing. Impression: No significant abnormality seen. Reviewed, dictated and finalized at location . Impression: No significant abnormality seen.
== END 2023-02-18 10:45 | disposition home or self-care (01) ==
PROVIDERS: PCP Family Medicine; Visit Provider Nurse Practitioner
DX: K85.90 Acute pancreatitis without necrosis or infection, unspecified (principal); R74.8 Abnormal levels of other serum enzymes
CPT/HCPCS: 76705

== ENCOUNTER 2023-03-14 00:21 | Day surgery (SDC) | payer MEDICARE, SELFPAY ==
[2023-02-28 13:16] VITALS: BMI 30.4
[2023-03-14 07:42] VITALS: BP 145/83; PULSE 85; RESP 18; TEMP 36.7; O2SAT 98
[2023-03-14] MEDS: LACTATED RINGERS 1,000 ML 150 ML IV CONT (07:52)
[2023-03-14 07:53] LABS: Glucose Point of Care 186 mg/dl (65-105)
--- NOTE | 2023-03-14 07:56 | P.PNAN_ITS ---
Anes - Initial Pre Proc Eval Procedure: Operation Date: 03/14/23 08:30 Proposed Procedures p Esophagogastroduodenoscopy & Colonoscopy - Dean Hinkle MD Date/Time: 03/14/23 07:56 Surgeon: Dean Hinkle MD Pre Op Diagnosis: nausea, Patient Data Age: 72 Gender: M Height: 1.85 m Weight: 102 kg Last Vital Signs Temp 36.7 C 03/14/23 07:42 Pulse 85 03/14/23 07:42 Resp 18 03/14/23 07:42 BP 145/83 H 03/14/23 07:42 Pulse Ox 98 03/14/23 07:42 O2 Del Method Room Air 03/14/23 07:42 Allergies Allergy/AdvReac Type Severity Reaction Status Date / Time No Known Allergies Allergy Verified 03/14/23 07:40 Home Medications Medication Instructions Recorded Confirmed Type Cialis 5 mg PO DAILY 11/23/20 02/28/23 History clotrimazole 10 mg emilio 10 mg mucous membrane USEASDIRECTD 11/23/20 02/28/23 H istory empagliflozin 25 mg tablet 25 mg PO DAILY 11/23/20 02/28/23 History (Jardiance) ipratropium bromide 21 mcg (0.03 1 spray intranasal PRN PRN Nasal 11/23/20 02/28/23 History %) nasal spray Congestion atorvastatin 20 mg tablet 20 mg PO DAILY 02/08/23 02/28/23 History omeprazole 20 mg capsule,delayed 20 mg PO DAILY #30 caps 02/08/23 02/28/23 Rx release Laboratory Tests 03/14/23 07:47 POC Capillary Glucose 186 H mg/dl (65-105) Patient hx anesthesia problems: none Family hx anesthesia problems: none Results Review: All pre-operative results and documents have been reviewed as part of the pre- operative evaluation. [facility] Past Medical History Medical History Acute pancreatitis Diabetes mellitus Elevated lipase Elevated liver enzymes Epigastric pain Hx of adenomatous colonic polyps Nausea Obesity Family History Family History Father Cerebrovascular accident Social History Social History Smoking status: Never smoker Alcohol intake: never Substance use: never Substance use type: does not use Living arrangements: other Additional living arrangements comments: With so Gender identity (if verbalized by the patient): Male Spiritual care concerns: No Anes - Eval Final PreProcedure Day of Procedure 03/14/23 07:56 Patient weight: overweight Heart: regular rate and rhythm Lungs: clear to auscultation Airway: Mallampati scale class II Neurological: alert and oriented Last oral intake: >/= 8 hours ASA classification: III Emergent: no Anesthetic plan: proceed Anesthesia type and monitoring: general GIVS and standard monitoring Results Review: All pre-operative results and documents have been reviewed as part of the pre- operative evaluation. Informed Consent: The patient's anesthetic plan and its attendant risks and benefits were discussed with the patient/family/POA. Questions were solicited and answers provided to the satisfaction of the patient/family/POA.
--- NOTE | 2023-03-14 08:27 | PM.HPGS ---
History of Present Illness History of Present Illness Consent: Risks, benefits, and alternatives have been discussed and questions answered. Patient agrees to proceed with procedure. Chief complaint: epigastric pain Narrative: Sudarshan Kim is a 72 year old male Presents for EGD. One month ago had epigastric pain. This is now resolved. It was felt he likely had pancreatitis secondary to Trulicity. Patient is had other medical problems including history of COVID and recent treatment for myasthenia gravis. He states these are improving. Patient presents for EGD because of history of epigastric pain 1 month ago. Current weight appetite bowel movements are normal. Family history noncontributory. Patient has a distant history of colon polyp in 2017. At present he does not wish to pursue follow-up colonoscopy at this time. Review of Systems Review of Systems: Review of systems noncontributory. [facility] Past Medical History Medical History Acute pancreatitis Diabetes mellitus Elevated lipase Elevated liver enzymes Epigastric pain Hx of adenomatous colonic polyps Nausea Obesity Family History Family History Father Cerebrovascular accident Social History Social History Smoking status: Never smoker Alcohol intake: never Substance use: never Substance use type: does not use Living arrangements: other Additional living arrangements comments: With so Gender identity (if verbalized by the patient): Male Spiritual care concerns: No Meds Home Medications and Allergies Home Medications Medication Instructions Recorded Confirmed Type Cialis 5 mg PO DAILY 11/23/20 02/28/23 History clotrimazole 10 mg emilio 10 mg mucous membrane USEASDIRECTD 11/23/20 02/28/23 History empagliflozin 25 mg tablet 25 mg PO DAILY 11/23/20 02/28/23 History (Jardiance) ipratropium bromide 21 mcg (0.03 1 spray intranasal PRN PRN Nasal 11/23/20 02/28/23 History %) nasal spray Congestion atorvastatin 20 mg tablet 20 mg PO DAILY 02/08/23 02/28/23 History omeprazole 20 mg capsule,delayed 20 mg PO DAILY #30 caps 02/08/23 02/28/23 Rx release Allergies Allergy/AdvReac Type Severity Reaction Status Date / Time No Known Allergies Allergy Verified 03/14/23 07:40 Vital Signs Vital Signs - 24 hr 03/14/23 07:42 Temperature 98.0 F Pulse Rate 85 Respiratory Rate 18 Blood Pressure 145/83 H Pulse Oximetry 98 Oxygen Delivery Room Air Exam Narrative: Physical exam reveals patient to be alert. Vital signs stable. HEENT exam is unremarkable. Patient is anicteric. Lungs are clear to auscultation and percussion. Heart is without murmur or extra sounds. Abdomen bowel sounds present soft nontender with no organomegaly. Digital external rectal exam normal. Assessment and Plan Assessment and plan (1) Epigastric pain: Code(s): R10.13 - Epigastric pain Status: Acute Assessment and Plan: Patient has a history of epigastric pain 1 month ago this along with nausea has resolved. Presumably related to recent pancreatitis. Plan for EGD to assess more thoroughly. Further recommendations may be given after endoscopy. (2) Hx of adenomatous colonic polyps: Code(s): Z86.010 - Personal history of colonic polyps Status: Acute Assessment and Plan: Patient has a history of adenomatous colon polyps removed from the colon 5 years ago. Follow-up colonoscopy advised in 5 years. This should be arranged electively if patient agrees at some point.
--- NOTE | 2023-03-14 08:41 | SUR.OPER ---
EGD start 844 end 848, Colonoscopy start 853
[2023-03-14 09:06] VITALS: BP 101/63; PULSE 77; RESP 20; O2SAT 98
[2023-03-14 09:16] VITALS: BP 111/74; PULSE 76; RESP 20; O2SAT 98
[2023-03-14 09:26] VITALS: BP 118/76; PULSE 74; RESP 20; O2SAT 98
== END 2023-03-14 09:40 | disposition home or self-care (01) ==
PROVIDERS: PCP Family Medicine; Visit Provider Internal Medicine Gastroenterology
PROC: 0DJ08ZZ Inspection of Upper Intestinal Tract, Via Natural or Artificial Opening Endoscopic (ICD-10-PCS; CPT 43235; principal; 2023-03-14 08:30)
DX: Z12.11 Encounter for screening for malignant neoplasm of colon (principal); K64.8 Other hemorrhoids; K21.00 Gastro-esophageal reflux disease with esophagitis, without bleeding; E11.9 Type 2 diabetes mellitus without complications; Z86.010 Personal history of colon polyps; Z79.84 Long term (current) use of oral hypoglycemic drugs
CPT/HCPCS: 43239; G0105; 82948; 87081; J2704; J7120

== ENCOUNTER 2023-04-22 10:58 | Inpatient (IN) | payer MEDICARE, SELFPAY ==
[2023-04-22] VITALS (20 sets, daily range): BP systolic 103–143; BP diastolic 57–107; PULSE 75–166; RESP 13–20; TEMP 36.1–36.6; O2SAT 95–98; BMI 30.2
--- NOTE | ~2023-04-22 | XR_ITS ---
EXAMINATION: XR chest 1V portable DATE: 04/22/2023 13:08 INDICATION: New onset atrial fibrillation. TECHNIQUE: A single frontal view of the chest was obtained. COMPARISON: Chest 2 views 11/24/2020 FINDINGS: There is mild atelectasis in the lower lung zones. A calcified right lung nodule is consist ent with old granulomatous disease. No pleural effusion or pneumothorax. The heart size is normal. IMPRESSION: 1. Mild atelectasis in the lower lung zones. Reviewed, dictated and finalized at location E.
--- NOTE | 2023-04-22 12:44 | ECG_ITS ---
Measurements Intervals [place] Rate: 151 P: [place]: 0 QRS: -23 QRSD: 80 T: 62 QT: 285 QTc: 452 Interpretive Statements ATRIAL FIBRILLATION WITH RAPID VENTRICULAR RESPONSE BORDERLINE LEFT AXIS DEVIATION [QRS AXIS < -20] ABNORMAL ECG COMPARED TO ECG 11/23/2020 20:14:30 ATRIAL FIBRILLATION REPLACES SINUS RHYTHM Electronically Signed On 04-22-2023 13:39:37 CDT by Scott Egan M.D.
--- NOTE | 2023-04-22 12:45 | ED.ARRPALP ---
HPI - Arrhythmia/Palpitations General Chief Complaint: Arrhythmia/Palpitations Stated Complaint: irregular heart beat Time Seen by Provider: 04/22/23 12:05 History of Present Illness HPI narrative: Patient is a 72-year-old male with a history of hyperlipidemia, GERD, diabetes presenting with irregular heartbeat. Patient states that he had a healthy visit by a nurse from his insurance company this morning. She checked his vitals and told him that his heart rate was irregular. Advised that he come to the ER. States that he felt lightheaded earlier today but otherwise denies complaints. No chest pain or shortness of breath. No numbness or weakness. No fevers, nausea or vomiting, diarrhea, leg swelling lately. Related Data Home Medications Medication Instructions Recorded Confirmed Cialis 5 mg PO DAILY 11/23/20 04/22/23 clotrimazole 10 mg emilio 10 mg mucous membrane USEASDIRECTD 11/23/20 04/22/23 PRN Rash empagliflozin 25 mg tablet 25 mg PO DAILY 11/23/20 04/22/23 (Jardiance) ipratropium bromide 21 mcg (0.03 1 spray intranasal PRN PRN Nasal 11/23/20 04/22/23 %) nasal spray Congestion atorvastatin 10 mg tablet 10 mg PO HS 04/22/23 04/22/23 Allergies Allergy/AdvReac Type Severity Reaction Status Date / Time No Known Allergies Allergy Verified 04/03/23 12:53 Review of Systems Review of Systems: All systems reviewed & are unremarkable except as noted in HPI and below PMFSH Past Medical History Medical History Adenomatous colon polyp Depression Gastroesophageal reflux disease Internal hemorrhoid Myasthenia gravis Obstructive sleep apnea on CPAP Pancreatitis (01/2023) Type 2 diabetes mellitus Surgical History Surgical History (Updated 04/22/23 @ 21:35 by Nalini Pariknson PA-C) History of cataract extraction History of colonoscopy with polypectomy History of tonsillectomy Family History Family History Father Cerebrovascular accident Social History Social History (Updated 04/22/23 @ 21:35 by Nalini Parkinson PA-C) Social History: Surrogate medical decision maker: shadi Burnett. Code status: Full code. Smoking status: Never smoker Alcohol intake: never Substance use: never Substance use type: does not use Lack of Transportation: No Lack of Food: Never True Current Housing: I Have Housing Concerned About Future Housing: No Difficulty Paying Gas/Electric Bills: No Difficulty Paying for Meds: No Currently Unemployed: No Education: Bachelor's Degree Difficulty w/ Childcare or Family Care: No Living arrangements: alone Occupation/Education: retired Spiritual care concerns: No Exam Narrative: GENERAL: Well-appearing, in no acute distress, pleasant and cooperative HEAD: Normocephalic, atraumatic. EYES: PERRLA and EOMI. ENT: Mucous membranes moist. NECK: Supple. CHEST: Clear to auscultation. No respiratory distress. HEART: Tachycardic, irregular rhythm ABDOMEN: Soft, nontender, nondistended EXTREMITIES: Normal range of motion. No edema. SKIN: Warm, dry, no rash. NEURO: Alert and oriented x3. PSYCH: Normal mood and affect. Course Vital Signs Vital signs: Vital Signs Temperature 97.8 F 04/22/23 11:08 Pulse Rate 151 H 04/22/23 11:08 Respiratory Rate 16 04/22/23 11:08 Blood Pressure 118/57 L 04/22/23 11:08 Pulse Oximetry 98 04/22/23 11:08 Oxygen Delivery Room Air 04/22/23 11:08 Temperature 97.3 F L 04/25/23 11:36 Pulse Rate 83 04/25/23 11:36 Respiratory Rate 18 04/25/23 11:36 Blood Pressure 114/77 04/25/23 11:36 Pulse Oximetry 98 04/25/23 11:36 Oxygen Delivery Room Air 04/25/23 08:00 MDM - Arrhythmia/Palpitations MDM Narrative Medical decision making narrative: Patient is a 72-year-old male presenting with an irregular heartbeat. On arrival, patient is tachycardic
[2023-04-22] MEDS: SODIUM CHLORIDE 0.9% IV 1,000 ML 999 ML IV CONT (12:55)
[2023-04-22 12:58] LABS: Basophils Absolute Auto 0.1 K/mm3 (0.0-0.1); Basophils Percent Auto 0.7 % (0.2-1.2); Eosinophils Absolute Auto 0.2 K/mm3 (0-0.3); Hematocrit 48.7 % (42.0-52.0); Hemoglobin 16.8 g/dL (14.0-18.0); Immature Granulocyte Absolute 0.02 K/mm3 (0.00-0.031); Immature Granulocyte Percent A 0.2 % (0-0.5); Lymphocytes Absolute Auto 1.84 K/mm3 (0.9-3.2); Lymphocytes Percent Auto 18.8 % (18.3-44.2); Mean Corpuscular HGB Conc 34.5 g/dl (32-36); Mean Corpuscular Hemoglobin 31.8 pg (26-34); Mean Corpuscular Volume 92.1 fl (80-100); Mean Platelet Volume 11.1 fl (7.4-10.4); Monocytes Absolute Auto 0.7 K/mm3 (0.1-0.6); Monocytes Percent Auto 7.5 % (2.6-8.5); Neutrophils Absolute Auto 6.9 K/mm3 (1.3-6.7); Neutrophils Percent Auto 70.8 % (45.5-73.1); Platelet Count Result 189 k/mm3 (150-375); Red Blood Count 5.29 M/mm3 (4.6-6.20); Red Cell Distribution Width 12.6 % (11.5-14.5); White Blood Count 9.8 K/mm3 (4.5-10.0)
[2023-04-22 12:59] LABS: Appearance Urine Clear (Clear); Bilirubin Urine Negative (Negative); Blood Urine Negative (Negative); Color Urine Yellow (Yellow); Glucose Urine UA 3+ mg/dL (Negative); Ketones Urine 1+ mg/dL (Negative); Leukocyte Esterase Ur Negative LEU/UL (Negative); Nitrate Urine Negative (Negative); Protein Urine Negative (Negative); Urobilinogen Urine 0.2 mg/dL (<2.0); pH Urine 5.5 (5.0-9.0)
[2023-04-22] MEDS: dilTIAZem 100 MG/100 ML 100 MG/100 ML BAG IV CONT (13:02)
[2023-04-22 13:06] LABS: Specific Grav Ur 1.041 (1.001-1.035)
[2023-04-22 13:07] LABS: Add Urine Microscopic? NO
[2023-04-22 13:11] LABS: INR 1.1; Prothrombin Time 14.6 Seconds (11.1-14.7)
[2023-04-22 13:12] LABS: Alanine Aminotransferase 28 U/L (6-50); Albumin Level 4.4 g/dL (3.5-5.1); Alkaline Phosphatase 57 U/L (38-126); Anion Gap 11 mmol/L (8-16); Aspartate Amino Transferase 27 U/L (17-59); Blood Urea Nitrogen 16 mg/dL (9-20); Calcium 8.8 mg/dL (8.4-10.2); Carbon Dioxide 20 mmol/L (22-30); Chloride 104 mmol/L (98-107); Estimated CRCL calculation 75 ml/min; Estimated Glomerular Filt Rate > 60; Glucose 332 mg/dL (65-110); Magnesium 2.2 mg/dL (1.6-2.3); Partial Thromboplastin Time 39.6 SECONDS (22.3-36.8); Phosphorus 3.8 mg/dL (2.5-4.5); Potassium 3.9 mmol/L (3.4-5.0); Sodium 135 mmol/L (137-145)
[2023-04-22 13:23] LABS: Troponin I < 0.012 ng/mL (0.000-0.034)
--- NOTE | 2023-04-22 15:44 | PM.IMHP ---
H&P: HPI History of Present Illness Date/Time: 04/22/23 16:45 Chief Complaint: Rapid and irregular heart rate. Narrative: This is a very pleasant 72-year-old male with history of myasthenia gravis, type 2 diabetes mellitus, hyperlipidemia, GERD, DVT, and sleep apnea who presented to the emergency department via EMS from home for evaluation of a rapid and irregular heart rate. The patient provides the following history. He had what sounds like an insurance physical today and nurse noted that his pulse was rapid and irregular and suggested that he come to the ER. He was found to be in atrial fibrillation with rapid ventricular response and rates in the 150s to 160s on arrival to the emergency department. He was given a bolus of diltiazem and has been started on a diltiazem drip with improvement in his rate. Aside from mild lightheadedness today, he has no symptoms and he specifically denies sensations of racing heart, fluttering, palpitations, and shortness of breath. He goes on to say that this is not necessarily unusual for him to feel lightheaded your and there, which he attributes to his age. He has no known history of cardiac disease or dysrhythmia. He states compliance with his CPAP. He drinks an awful lot a caffeine (2 to 4 cups of coffee a day in addition to soda and tea). No significant alcohol use. Labs were reviewed and aside from a random glucose of 332, they were pretty unremarkable. Chest x-ray showed mild atelectasis in the lower lung zones. He is being admitted in this setting for further treatment and evaluation. [facility] Past Medical History Medical History (Updated 04/22/23 @ 21:38 by Nalini Parkinson PA-C) Adenomatous colon polyp Depression Gastroesophageal reflux disease Internal hemorrhoid Myasthenia gravis Obstructive sleep apnea on CPAP Pancreatitis (01/2023) Type 2 diabetes mellitus Surgical History Surgical History (Updated 04/22/23 @ 21:35 by Nalini Parkinson PA-C) History of cataract extraction History of colonoscopy with polypectomy History of tonsillectomy Family History Family History Father Cerebrovascular accident Social History Social History (Updated 04/22/23 @ 21:35 by Nalini Parkinson PA-C) Social History: Surrogate medical decision maker: Carlos Enrique or shadi Borrero. Code status: Full code. Smoking status: Never smoker Alcohol intake: never Substance use: never Substance use type: does not use Lack of Transportation: No Lack of Food: Never True Current Housing: I Have Housing Concerned About Future Housing: No Difficulty Paying Gas/Electric Bills: No Difficulty Paying for Meds: No Currently Unemployed: No Education: Bachelor's Degree Difficulty w/ Childcare or Family Care: No Living arrangements: alone Occupation/Education: retired Spiritual care concerns: No Meds Home Medications and Allergies Home Medications Medication Instructions Recorded Confirmed Type Cialis 5 mg PO DAILY 11/23/20 04/22/23 History clotrimazole 10 mg emilio 10 mg mucous membrane USEASDIRECTD 11/23/20 04/22/23 History PRN Rash empagliflozin 25 mg tablet 25 mg PO DAILY 11/23/20 04/22/23 History (Jardiance) ipratropium bromide 21 mcg (0.03 1 spray intranasal PRN PRN Nasal 11/23/20 04/22/23 History %) nasal spray Congestion omeprazole 20 mg capsule,delayed 20 mg PO DAILY #60 caps 04/03/23 04/22/23 Rx release atorvastatin 10 mg tablet 10 mg PO HS 04/22/23 04/22/23 History Allergies Allergy/AdvReac Type Severity Reaction Status Date / Time No Known Allergies Allergy Verified 04/03/23 12:53 Vital Signs Vital Signs - 24 hr 04/22/23 11:08 04/22/23 11:45 04/22/23 13:02 Temperature 97.8 F Pulse Rate 151 H 166 H 144 H Respiratory Rate 16 16 Blood Pressure 118/57 L 119/107 H 125/87 Pulse Oximetry 98 97 Oxygen Delivery Room Air 04/22/23 13:37 04/22/23 13:01 04/22/23 13:
--- NOTE | 2023-04-22 18:10 | ADMGEN ---
This patient, Sudarshan Kim, was admitted to IMU Room 231-01. Patient/family oriented to hospital policies and general routines including ID bracelet, bed and alarms, visiting hours, pain management, procedures, bathroom and other care routines, personal items, smoking policy, room service/diet, and visiting hours. Information on how to activate the Rapid Response Team has been discussed. Patient/Family are encouraged to report perceived risks to care and to ask questions if they do not understand what they are told or what they should do.
[2023-04-22 18:45] LABS: Glucose Point of Care 181 mg/dl (65-105)
[2023-04-22 19:02] LABS: Troponin I < 0.012 ng/mL (0.000-0.034)
[2023-04-22] MEDS: dilTIAZem 100 MG/100 ML 100 MG/100 ML BAG 15 MG IV CONT (20:02)
[2023-04-22 20:53] LABS: Glucose Point of Care 189 mg/dl (65-105)
[2023-04-22] MEDS: ATORVASTATIN 10 MG TABLET PO (22:01)
[2023-04-22] MEDS: APIXABAN 5 MG TABLET PO (22:01)
[2023-04-22 22:31] LABS: Hemoglobin A1C 9.4 % (<5.7)
[2023-04-23] VITALS (25 sets, daily range): BP systolic 101–128; BP diastolic 56–74; PULSE 70–137; RESP 14–20; TEMP 35.9–36.6; O2SAT 95–99
--- NOTE | 2023-04-23 | ECHO_ITS ---
Patient Info Name: Sudarshan Kim Age: 72 years : 1950 Gender: Male Ht: 71 in Wt: 229 lbs BSA: 2.31 m2 HR: 79 bpm BP: 106 / 62 mmHg Heart Rhythm: Atrial Fibrillation Technical Quality: Good Exam Date: 04/23/2023 9:38 AM Exam Location: [facility] Patient Status: Inpatient Admit Date: 04/23/2023 Staff Ordering Physician: Nalini Parkinson PA-C Explosive Operator Bomb: Jan Dudley RDCS Attending Provider: Bud Merrill MD Referring Physician: Iggy GOMEZ; Exam Type: CA echo doppler color flow Study Info Indications - newonset A-fib/RVR Complete two-dimensional, color flow and Doppler transthoracic echocardiogram is performed. Summary 1. Complete two-dimensional, color flow and Doppler transthoracic echocardiogram is performed. 2. Left ventricular chamber dimension is normal. 3. Left ventricular systolic function is hyperdynamic, estimated at >70%. 4. There is mildly increased left ventricular wall thickness. 5. Right ventricular systolic function is normal. 6. Left atrial chamber dimension is severely enlarged. 7. Right atrial chamber dimension is mildly enlarged. 8. There is mild mitral valve regurgitation. 9. There is trivial pericardial effusion. Left Ventricle Left ventricular chamber dimension is normal. Left ventricular systolic function is hyperdynamic, estimated at >70%. There is mildly increased left ventricular wall thickness. The left ventricular diastolic function is indeterminate. Right Ventricle Right ventricular chamber dimension is normal. Right ventricular systolic function is normal. Left Atria Left atrial chamber dimension is severely enlarged. Right Atria Right atrial chamber dimension is mildly enlarged. Atrial Septum Intact interatrial septum visualized by color flow imaging. Aortic Valve The aortic valve is trileaflet. There is no aortic valve stenosis. There is no aortic valve regurgitation. There is mild aortic valve calcification. Pulmonic Valve The pulmonic valve is not well visualized. Mitral Valve There is mild mitral valve regurgitation. Tricuspid Valve There is trace tricuspid valve regurgitation. Pericardium/Pleural There is trivial pericardial effusion. Inferior Vena Cava Dilated inferior vena cava with >50% collapse upon inspiration consistent with elevated right atrial pressure, 8 mmHg. Aorta The aortic root size at the sinus of Valsalva is normal. Left Ventricular Outflow Tract Name Value Normal LVOT 2D LVOT Diameter 2.2 cm LVOT Doppler LVOT Peak Gradient 4 mmHg LVOT Mean Gradient 2 mmHg LVOT VTI 22 cm LVOT VTI/AV VTI Ratio 0.7 LVOT Stroke Volume 87 ml LVOT CO 4.5 l/min LVOT CI 1.9 l/min/m2 Pulmonic Valve Name Value Normal RVOT Doppler RVOT Peak Gradien
[2023-04-23] MEDS: dilTIAZem 100 MG/100 ML 100 MG/100 ML BAG 15 MG IV CONT ×2 (02:19→09:36)
[2023-04-23 05:02] LABS: Hemoglobin 15.3 g/dL (14.0-18.0); Mean Corpuscular HGB Conc 34.8 g/dl (32-36); Mean Corpuscular Hemoglobin 31.9 pg (26-34); Mean Corpuscular Volume 91.7 fl (80-100); Mean Platelet Volume 10.1 fl (7.4-10.4); Platelet Count Result 156 k/mm3 (150-375); Red Cell Distribution Width 12.6 % (11.5-14.5); White Blood Count 10.3 K/mm3 (4.5-10.0)
[2023-04-23 05:10] LABS: Anion Gap 11 mmol/L (8-16); Blood Urea Nitrogen 17 mg/dL (9-20); Calcium 8.1 mg/dL (8.4-10.2); Carbon Dioxide 19 mmol/L (22-30); Chloride 107 mmol/L (98-107); Estimated CRCL calculation 83 ml/min; Estimated Glomerular Filt Rate > 60; Glucose 163 mg/dL (65-110); Magnesium 2.3 mg/dL (1.6-2.3); Potassium 3.7 mmol/L (3.4-5.0); Sodium 137 mmol/L (137-145)
[2023-04-23] MEDS: APIXABAN 5 MG TABLET PO ×2 (08:25→19:58)
[2023-04-23] MEDS: PANTOPRAZOLE 40 MG TABLET PO (08:25)
[2023-04-23] MEDS: EMPAGLIFLOZIN 25 MG TABLET PO (08:25)
[2023-04-23 08:57] LABS: Glucose Point of Care 336 mg/dl (65-105)
--- NOTE | 2023-04-23 11:30 | PC.NURSE ---
BG 336 taken after breakfast. Pt reports never taking insulin and does not want insulin coverage at this time. Explains his blood sugar drops quickly. Repeat BG 190 before lunch. No insulin given. Pt currently on mod-dose SS. Dr. Red made aware.
--- NOTE | 2023-04-23 12:44 | PM.IMPN ---
Progress Note: A&P Assessment and Plan (1) New onset atrial fibrillation: Code(s): I48.91 - Unspecified atrial fibrillation Status: Acute Assessment and Plan: Patient with new onset AFib. Unclear duration since he does not have very many symptoms. This may been noted about a month ago although the details are unclear. TSH is normal. EKG showed atrial fibrillation with RVR with QS configuration in inferior leads. Early R-wave progression. CHADS2 Vasc score is 2 and anticoagulation is indicated. Echocardiogram has been ordered. He has been started on diltiazem drip. Heart rate is better controlled. Add Lopressor. Cardiology consult. (2) Type 2 diabetes mellitus with hyperglycemia: Code(s): E11.65 - Type 2 diabetes mellitus with hyperglycemia Status: Acute Assessment and Plan: A1c 9.4. the patient's blood glucose was reviewed on 04/23 Glucose poorly controlled at times. Continue AccuCheks covering with sliding scale. Hypoglycemia protocol available as needed. Continue to monitor (3) Obstructive sleep apnea on CPAP: Code(s): G47.33 - Obstructive sleep apnea (adult) (pediatric) Status: Acute Assessment and Plan: Auto BiPAP has been ordered. Continue the same. (4) Myasthenia gravis: Code(s): G70.00 - Myasthenia gravis without (acute) exacerbation Status: Acute Assessment and Plan: Patient has a history of myasthenia gravis. Increase activity level. PT OT. Subjective Date/time seen: 04/23/23 12:44 Interval history: 72yo male with MG, LAZARO and DM here for new onset AFib. Patient is feeling well. He denies having symptoms of palpitations, racing heart rate or chest pain. He states he developed myasthenia gravis related to COVID vaccine. He was treated with steroids and mycophenolate. He has come off these medications recently. Patient states he recently had pancreatitis. He was not hospitalized but stated home with his symptoms. It was felt that pancreatitis was related to Trulicity. About a month ago, he was noted to have an abnormal heart rhythm but unclear if this was atrial fibrillation. He did have an EGD and colonoscopy end of February but no EKG recorded then Exam Narrative: AF 97.1 121/62 105 16 98% ra Gen - NARD Chest - CTA bilaterally, nml RR CV - irregularly irregular. Tele showing AFib with occasional RVR Abd - Soft, NT/ND, Positive BS Ext - No pedal edema. Negative Diana's Neuro - Alert and oriented. Nonfocal exam. Psych - Nml mood and affect Skin - Warm and dry Objective Data Vital Signs Vital Signs: Vital Signs - 24 hr 04/22/23 13:02 04/22/23 13:37 04/22/23 13:01 Temperature Pulse Rate 144 H 142 H 150 H Respiratory Rate 13 Blood Pressure 125/87 103/81 125/87 Pulse Oximetry 97 Oxygen Delivery 04/22/23 13:37 04/22/23 13:46 04/22/23 14:01 Temperature Pulse Rate 142 H 133 H 153 H Respiratory Rate 18 17 17 Blood Pressure 103/81 110/90 128/83 Pulse Oximetry 98 95 96 Oxygen Delivery 04/22/23 15:02 04/22/23 15:01 04/22/23 15:16 Temperature Pulse Rate 128 H 130 H 124 H Respiratory Rate 16 19 Blood Pressure 117/78 117/78 123/67 Pulse Oximetry 97 96 Oxygen Delivery 04/22/23 15:31 04/22/23 15:46 04/22/23 16:49 Temperature Pulse Rate 121 H 108 H 117 H Respiratory Rate 20 18 Blood Pressure 115/63 122/76 124/89 Pulse Oximetry 96 97 96 Oxygen Delivery 04/22/23 17:02 04/22/23 17:15 04/22/23 18:00 Temperature 97.4 F L Pulse Rate 113 H 75 112 H Respiratory Rate 20 18 Blood Pressure 143/76 H 118/61 Pulse Oximetry 98 97 Oxygen Delivery 04/22/23 19:52 04/22/23 20:02 04/22/23 20:02 Temperature 97.0 F L Pulse Rate 115 H 101 H 101 H Respiratory Rate 16 Blood Pressure 115/64 Pulse Oximetry 98 Oxygen Delivery 04/22/23 20:00 04/22/23 20:00 04/22/23 22:00 Temperature Pulse Rate 102 H 95 Respiratory Rate Bloo
[2023-04-23 13:26] LABS: Glucose Point of Care 190 mg/dl (65-105)
[2023-04-23] MEDS: METOPROLOL TARTRATE 25 MG TABLET PO ×2 (13:31→19:58)
--- NOTE | 2023-04-23 14:03 | PM.CNCAR ---
Assessment and Plan Assessment and plan (1) Atrial fibrillation with rapid ventricular response: Code(s): I48.91 - Unspecified atrial fibrillation Status: Acute Assessment and Plan: Presents with atrial fibrillation with rapid ventricular response. This is a new diagnosis. Chronicity of this arrhythmia is unknown as he is asymptomatic. Discussed management strategies for atrial fibrillation including rate control versus rhythm control. Since the onset of atrial fibrillation is unknown and he has not been anticoagulated, will proceed with rate control strategy for now. Can discuss outpatient DCCV in 1 month when he has been anticoagulated for that period of time. He has a [id number] score of 2 because of age and DM, so will continue anticoagulation with apixaban. Echo showed normal LV systolic function, severe CLARE, mild MR, and a trivial pericardial effusion. TSH is normal. Rate was not controlled on maximum dose of diltiazem so metoprolol was added by hospitalist. Good response to metoprolol. Will attempt rate control with metoprolol, so will try and wean diltiazem drip as we up titrate metoprolol Decrease diltiazem drip to 10mg now Increase metoprolol to 25mg q6h Continue to monitor on telemetry Possible discharge tomorrow if rate remains controlled (2) Obstructive sleep apnea on CPAP: Code(s): G47.33 - Obstructive sleep apnea (adult) (pediatric) Status: Acute Assessment and Plan: Continued compliance with CPAP History of Present Illness History of Present Illness Consult date/time: 04/23/23 14:03 Requesting physician: Philippe Red MD Consult reason: atrial fibrillation Reason For Visit: Afib with RVR Narrative: Mr. Kim Is a 72-year-old male with a past medical history of myasthenia gravis, pancreatitis, type 2 diabetes mellitus , and sleep apnea on CPAP. He comes to the hospital because of rapid and irregular heart rate and rhythm noted by nurse performing a home visit for insurance. He denies experiencing any palpitations, shortness of breath, chest pain. He has no known cardiac history Aside from being told that he has a murmur. His heart rate is currently controlled on a combination of IV diltiazem and p.o. metoprolol. Echocardiogram was performed that showed normal LV systolic function, severe biatrial enlargement, mild mitral valve regurgitation, and a trivial pericardial effusion. Currently, he is sitting comfortably in the chair and does not have any complaints of any kind. Review of Systems Review of Systems: All systems reviewed & are unremarkable except as noted in HPI and below PMFSH Past Medical History Medical History Adenomatous colon polyp Depression Gastroesophageal reflux disease Internal hemorrhoid Myasthenia gravis Obstructive sleep apnea on CPAP Pancreatitis (01/2023) Type 2 diabetes mellitus Surgical History Surgical History (Updated 04/22/23 @ 21:35 by Nalini Parkinson PA-C) History of cataract extraction History of colonoscopy with polypectomy History of tonsillectomy Family History Family History Father Cerebrovascular accident Social History Social History (Updated 04/22/23 @ 21:35 by Nalini Parkinson PA-C) Social History: Surrogate medical decision maker: shadi Burnett. Code status: Full code. Smoking status: Never smoker Alcohol intake: never Substance use: never Substance use type: does not use Lack of Transportation: No Lack of Food: Never True Current Housing: I Have Housing Concerned About Future Housing: No Difficulty Paying Gas/Electric Bills: No Difficulty Paying for Meds: No Currently Unemployed: No Education: Bachelor's Degree Difficulty w/ Childcare or Family Care: No Living arrangements: alone Occupation/Education: retired Spiritual care concerns:
[2023-04-23 16:51] LABS: Glucose Point of Care 177 mg/dl (65-105)
--- NOTE | 2023-04-23 18:33 | PC.NURSE ---
1520-Spoke with Kate Zuleta about pt starting to have pauses on mold designer after receiving metoprolol and diltiazem being decreased. Patient's HR was also high 60's to 70's. Received orders to stop the diltiazem drip. Will continue to follow medications as ordered.
[2023-04-23] MEDS: ATORVASTATIN 10 MG TABLET PO (19:58)
[2023-04-23 20:22] LABS: Glucose Point of Care 203 mg/dl (65-105)
[2023-04-24] VITALS (23 sets, daily range): BP systolic 107–130; BP diastolic 55–76; PULSE 73–150; RESP 14–20; TEMP 36.1–36.6; O2SAT 7–100
[2023-04-24] MEDS: METOPROLOL TARTRATE 25 MG TABLET PO ×2 (00:31→05:34)
[2023-04-24 05:12] LABS: Hematocrit 46.2 % (42.0-52.0); Hemoglobin 15.7 g/dL (14.0-18.0); Mean Corpuscular Hemoglobin 31.7 pg (26-34); Mean Corpuscular Volume 93.1 fl (80-100); Mean Platelet Volume 10.1 fl (7.4-10.4); Platelet Count Result 159 k/mm3 (150-375); Red Blood Count 4.96 M/mm3 (4.6-6.20); Red Cell Distribution Width 12.7 % (11.5-14.5); White Blood Count 9.7 K/mm3 (4.5-10.0)
[2023-04-24 05:32] LABS: Anion Gap 10 mmol/L (8-16); Blood Urea Nitrogen 18 mg/dL (9-20); Calcium 8.3 mg/dL (8.4-10.2); Carbon Dioxide 18 mmol/L (22-30); Chloride 107 mmol/L (98-107); Estimated CRCL calculation 85 ml/min; Estimated Glomerular Filt Rate > 60; Glucose 153 mg/dL (65-110); Potassium 3.9 mmol/L (3.4-5.0); Sodium 135 mmol/L (137-145)
--- NOTE | 2023-04-24 08:09 | PC.NURSE ---
Patient c/o not feeling well. Vitals and blood glucose taken. Dr. Mendoza notified of patient symptoms. Morning medications to be given then patient reevaluated.
[2023-04-24] MEDS: EMPAGLIFLOZIN 25 MG TABLET PO (08:16)
[2023-04-24] MEDS: PANTOPRAZOLE 40 MG TABLET PO (08:16)
[2023-04-24] MEDS: APIXABAN 5 MG TABLET PO ×2 (08:16→20:38)
[2023-04-24 08:29] LABS: Glucose Point of Care 164 mg/dl (65-105)
--- NOTE | 2023-04-24 09:23 | PM.PNCARD ---
Progress Note: A&P Assessment and Plan (1) Atrial fibrillation with rapid ventricular response: Code(s): I48.91 - Unspecified atrial fibrillation Status: Acute Assessment and Plan: New onset atrial fibrillation with rapid ventricular response. Chronicity of this arrhythmia is unknown as he is asymptomatic. Discussed management strategies for atrial fibrillation including rate control versus rhythm control. Rate was not controlled on metoprolol 25 mg q.6 hours p.o. so I added diltiazem 60 mg q.6 hours as well as a 15 mg IV push bolus. Continue to monitor on telemetry Heart rate is still uncontrolled and I recommended patient stay overnight. Discussed possible JAMES guided cardioversion tomorrow instead of waiting a month since his heart rate is so difficult to control and patient is interested in proceeding with that. Discussed atrial fibrillation in general, its tendency to recur, long-term therapy, options for escalating care with antiarrhythmics or ablation if this is a frequent recurrent problem. (2) Obstructive sleep apnea on CPAP: Code(s): G47.33 - Obstructive sleep apnea (adult) (pediatric) Status: Acute Assessment and Plan: Continued compliance with CPAP Subjective Date/time seen: 04/24/23 09:23 Interval history: Follow-up for patient admitted with AFib RVR of uncertain duration. History of myasthenia gravis, diabetes, sleep apnea on CPAP. TSH normal. Echo showed EF greater than 70%, LVH, biatrial enlargement, mild MR. 04/23/2023 heart rate not controlled on high-dose IV diltiazem, increase metoprolol to 25 mg q.6 hours. Started on apixaban. 04/24/2023: Heart rate remains poorly controlled, 110 to 130s, sometimes up to 150 beats per minute, taking metoprolol 25 mg q.6 hours. Patient is sitting in a chair asymptomatic, somewhat anxious and upset that he has a heart problem when he has always felt healthy. Many questions, hopefully answered to his satisfaction. Review of Systems Review of Systems: No chest pain, shortness of breath, dizziness, swelling, bleeding problems Exam Const: General: cooperative, healthy appearing and comfortable; No confusion Orientation/consciousness: oriented to person, patient oriented x3 and No confusion HENMT: Mouth: Yes moist mucous membranes Eyes: General: appearance normal, both eyes and all related structures Neck: Neck: supple and no JVD Resp: Effort & Inspection: normal respiratory effort Auscultation: clear to auscultation bilaterally Cardio: Rate: regular rate and tachycardic Rhythm: regular rhythm and abnormal rhythm irregularly irregular Heart sounds: Murmur heart sound present (1/6 AMBER left lower sternal border) GI: Inspection: normal to inspection GI Palp: No abdominal tenderness Skin: General skin exam: normal color and no rashes or lesions noted Neuro: General: oriented to person, patient oriented x3 and No confusion Extrem: Right lower extremity: no edema Left lower extremity: no edema Psych: Appearance: grossly normal Mental Status: mental status grossly normal Objective Data Vital Signs Vital Signs: Vital Signs - 24 hr 04/23/23 09:36 04/23/23 10:00 04/23/23 11:46 Temperature 97.1 F L Pulse Rate 101 H 102 H 105 H Respiratory Rate 16 Blood Pressure 121/62 Pulse Oximetry 98 Oxygen Delivery 04/23/23 13:31 04/23/23 12:00 04/23/23 15:20 Temperature Pulse Rate 104 H 137 H Respiratory Rate Blood Pressure 101/67 Pulse Oximetry Oxygen Delivery 04/23/23 15:30 04/23/23 15:48 04/23/23 16:13 Temperature 97.9 F Pulse Rate 77 70 83 Respiratory Rate 18 Blood Pressure 101/67 122/74 Pulse Oximetry 99 Oxygen Delivery 04/23/23 14:00 04/23/23 18:00 04/23/23 19:41 Temperature 96.7 F L Pulse Rate 83 89 85 Respiratory Rate 16 Blood Pressure 108/68 Pulse Oximetry 98 Oxygen Delivery 04/23/23 19:58 04/23/23 20:00 04/23/23 20:00 [place]
--- NOTE | 2023-04-24 09:24 | PC.NURSE ---
Dr. Velázquez updated on patient vitals.
[2023-04-24] MEDS: dilTIAZem HCl INJ 25 MG/5 ML VIAL 15 MG IV PUSH (09:49)
[2023-04-24] MEDS: dilTIAZem HCL 60 MG TABLET PO ×4 (09:50→23:21)
--- NOTE | 2023-04-24 10:50 | PCPTNOTE ---
Attempted PT evaluation. Pt refused stating he was doing well. RN confirmed pt is ambulating independently. Left message with hospitalist.
[2023-04-24] MEDS: INSULIN ASPART (*BKC) 100 UNITS/ML SUB-Q ×2 (11:47→21:42)
[2023-04-24] MEDS: METOPROLOL TARTRATE 50 MG TAB PO ×3 (11:51→23:21)
[2023-04-24 14:10] LABS: Glucose Point of Care 214 mg/dl (65-105)
--- NOTE | 2023-04-24 16:13 | PM.IMPN ---
Progress Note: A&P Assessment and Plan (1) New onset atrial fibrillation: Code(s): I48.91 - Unspecified atrial fibrillation Status: Acute Assessment and Plan: Patient with new onset AFib. Unclear duration since he does not have very many symptoms. This may been noted about a month ago although the details are unclear. TSH is normal. EKG showed atrial fibrillation with RVR with QS configuration in inferior leads. Early R-wave progression. CHADS2 Vasc score is 2 and anticoagulation is indicated. Echocardiogram has been ordered. He has been started on diltiazem drip. Heart rate is better controlled. Add Lopressor. Cardiology consult appreciated. 04/24: Weaned off diltiazem drip, increase metoprolol to 50 mg q.6 hours, Cardizem 60 mg q.6 hours as well added by Cardiology (2) Type 2 diabetes mellitus with hyperglycemia: Code(s): E11.65 - Type 2 diabetes mellitus with hyperglycemia Status: Acute Assessment and Plan: A1c 9.4. the patient's blood glucose was reviewed on 04/24 Glucose poorly controlled at times. Continue AccuCheks covering with sliding scale. Hypoglycemia protocol available as needed. Continue to monitor (3) Obstructive sleep apnea on CPAP: Code(s): G47.33 - Obstructive sleep apnea (adult) (pediatric) Status: Acute Assessment and Plan: Auto BiPAP has been ordered. Continue the same. (4) Myasthenia gravis: Code(s): G70.00 - Myasthenia gravis without (acute) exacerbation Status: Acute Assessment and Plan: Patient has a history of myasthenia gravis. Increase activity level. PT OT. Plan DVT prophylaxis with Eliquis GI prophylaxis not indicated Code status DNR Subjective Date/time seen: 04/24/23 16:13 Interval history: 72yo male with MG, LAZARO and DM here for new onset AFib. Patient still with elevated heart rate, occasionally symptomatic, usually asymptomatic. No overnight events noted. No chest pain or shortness of breath. No nausea, vomiting or diarrhea. No fevers or chills. Review of Systems Review of Systems: 12 point review of systems was assessed and was negative except as noted in the HPI Exam Narrative: General: No acute distress, alert and oriented per baseline HEENT: Atraumatic, normocephalic, mucous membranes moist CV: Irregularly irregular, S1, S2 Lungs: Clear to auscultation bilaterally, no rales or crackles noted, no wheezes, good air entry Abdomen: Soft, nontender, nondistended Extremities: Normal to inspection Skin: No rashes noted, no lesions or wounds seen Psych: Euthymic, normal affect Objective Data Vital Signs Vital Signs: Vital Signs - 24 hr 04/23/23 18:00 04/23/23 19:41 04/23/23 19:58 Temperature 96.7 F L Pulse Rate 89 85 110 H Respiratory Rate 16 Blood Pressure 108/68 Pulse Oximetry 98 Oxygen Delivery 04/23/23 20:00 04/23/23 20:00 04/23/23 22:00 Temperature Pulse Rate 137 H 104 H Respiratory Rate Blood Pressure Pulse Oximetry Oxygen Delivery Room Air 04/24/23 00:29 04/24/23 00:31 04/24/23 00:00 Temperature 97 F L Pulse Rate 112 H 111 H 95 Respiratory Rate 20 Blood Pressure 130/70 Pulse Oximetry 97 Oxygen Delivery 04/24/23 00:00 04/24/23 00:15 04/24/23 02:00 Temperature Pulse Rate 119 H 114 H Respiratory Rate Blood Pressure Pulse Oximetry 96 Oxygen Delivery Room Air CPAP 04/24/23 04:00 04/24/23 05:34 04/24/23 04:00 Temperature 97.0 F L Pulse Rate 107 H 133 H Respiratory Rate 16 Blood Pressure 109/55 L Pulse Oximetry 99 Oxygen Delivery CPAP 04/24/23 04:00 04/24/23 06:00 04/24/23 03:00 Temperature Pulse Rate 103 H 129 H 124 H Respiratory Rate Blood Pressure Pulse Oximetry 95 Oxygen Delivery CPAP 04/24/23 08:00 04/24/23 08:00 04/24/23 09:31 Temperature 97.1 F L Pulse Rate 143 H Respiratory Rate 16 Blood Pressure 108/61
[2023-04-24 17:24] LABS: Glucose Point of Care 183 mg/dl (65-105)
[2023-04-24] MEDS: ATORVASTATIN 10 MG TABLET PO (20:38)
[2023-04-24 21:04] LABS: Glucose Point of Care 210 mg/dl (65-105)
[2023-04-25] VITALS (10 sets, daily range): BP systolic 100–114; BP diastolic 63–77; PULSE 74–95; RESP 16–18; TEMP 36–36.6; O2SAT 96–98
[2023-04-25 05:08] LABS: Basophils Percent Auto 0.5 % (0.2-1.2); Eosinophils Absolute Auto 0.2 K/mm3 (0-0.3); Eosinophils Percent Auto 2.8 % (0-4.4); Hematocrit 43.6 % (42.0-52.0); Immature Granulocyte Absolute 0.02 K/mm3 (0.00-0.031); Immature Granulocyte Percent A 0.3 % (0-0.5); Lymphocytes Absolute Auto 2.02 K/mm3 (0.9-3.2); Lymphocytes Percent Auto 26.7 % (18.3-44.2); Mean Corpuscular HGB Conc 34.4 g/dl (32-36); Mean Platelet Volume 10.1 fl (7.4-10.4); Monocytes Absolute Auto 0.7 K/mm3 (0.1-0.6); Monocytes Percent Auto 9.5 % (2.6-8.5); Neutrophils Absolute Auto 4.6 K/mm3 (1.3-6.7); Neutrophils Percent Auto 60.2 % (45.5-73.1); Platelet Count Result 142 k/mm3 (150-375); Red Blood Count 4.69 M/mm3 (4.6-6.20); Red Cell Distribution Width 12.9 % (11.5-14.5); White Blood Count 7.6 K/mm3 (4.5-10.0)
[2023-04-25 05:18] LABS: Alanine Aminotransferase 24 U/L (6-50); Albumin Level 3.7 g/dL (3.5-5.1); Alkaline Phosphatase 37 U/L (38-126); Anion Gap 12 mmol/L (8-16); Aspartate Amino Transferase 26 U/L (17-59); Blood Urea Nitrogen 20 mg/dL (9-20); Carbon Dioxide 19 mmol/L (22-30); Chloride 105 mmol/L (98-107); Estimated CRCL calculation 77 ml/min; Estimated Glomerular Filt Rate > 60; Glucose 150 mg/dL (65-110); Potassium 3.3 mmol/L (3.4-5.0); Sodium 136 mmol/L (137-145)
[2023-04-25] MEDS: POTASSIUM CHLORIDE 20 MEQ PACKET (FOR LIQUID) PO (08:15)
[2023-04-25] MEDS: POTASSIUM CHLORIDE 20 MEQ PACKET (FOR LIQUID) 40 MEQ PO (08:15)
[2023-04-25] MEDS: PANTOPRAZOLE 40 MG TABLET PO (08:15)
[2023-04-25] MEDS: EMPAGLIFLOZIN 25 MG TABLET PO (08:15)
[2023-04-25] MEDS: APIXABAN 5 MG TABLET PO (08:25)
[2023-04-25 08:49] LABS: Glucose Point of Care 163 mg/dl (65-105)
--- NOTE | 2023-04-25 09:43 | PM.DS ---
DS: Admitting Diagnosis Discharge Date 04/25/23 Admitting Diagnosis Shortness of breath DS: Discharge Diagnosis Discharge Diagnosis (1) New onset atrial fibrillation: Code(s): I48.91 - Unspecified atrial fibrillation Status: Acute Assessment and Plan: Patient with new onset AFib. Unclear duration since he does not have very many symptoms. This may been noted about a month ago although the details are unclear. TSH is normal. EKG showed atrial fibrillation with RVR with QS configuration in inferior leads. Early R-wave progression. CHADS2 Vasc score is 2 and anticoagulation is indicated. Echocardiogram has been ordered. He has been started on diltiazem drip. Heart rate is better controlled. Add Lopressor. Cardiology consult appreciated. 04/24: Weaned off diltiazem drip, increase metoprolol to 50 mg q.6 hours, Cardizem 60 mg q.6 hours as well added by Cardiology (2) Type 2 diabetes mellitus with hyperglycemia: Code(s): E11.65 - Type 2 diabetes mellitus with hyperglycemia Status: Acute Assessment and Plan: A1c 9.4. the patient's blood glucose was reviewed on 04/24 Glucose poorly controlled at times. Continue AccuCheks covering with sliding scale. Hypoglycemia protocol available as needed. Continue to monitor (3) Obstructive sleep apnea on CPAP: Code(s): G47.33 - Obstructive sleep apnea (adult) (pediatric) Status: Acute Assessment and Plan: Auto BiPAP has been ordered. Continue the same. (4) Myasthenia gravis: Code(s): G70.00 - Myasthenia gravis without (acute) exacerbation Status: Acute Assessment and Plan: Patient has a history of myasthenia gravis. Increase activity level. PT OT. Plan DVT prophylaxis with Eliquis GI prophylaxis not indicated Code status DNR DS: Summary Hospital Course Hospital Course: 72yo male with MG, LAZARO and DM here for new onset AFib. Patient with new onset AFib.? Unclear duration since he does not have very many symptoms.? This may been noted about a month ago although the details are unclear.? TSH is normal.? EKG showed atrial fibrillation with RVR with QS configuration in inferior leads.? Early R-wave progression.? CHADS2 Vasc score is 2 and anticoagulation is indicated. Echocardiogram has been ordered.? He has been started on diltiazem drip.? Heart rate is better controlled.? Add Lopressor.? Cardiology consult appreciated. 04/24: Weaned off diltiazem drip, increase metoprolol to 50 mg q.6 hours, Cardizem 60 mg q.6 hours as well added by Cardiology All symptoms resolved with oral medications. Patient was started on Eliquis and was discharged in stable condition with close outpatient follow-up. Plan is for outpatient JAMES in 1 month. Please see above and med rec for details. Time Spent with Patient Time attestation: Total time spent providing and/or coordinating discharge services: Exam Narrative: General: No acute distress, alert and oriented per baseline HEENT: Atraumatic, normocephalic, mucous membranes moist CV: Irregularly irregular, S1, S2 Lungs: Clear to auscultation bilaterally, no rales or crackles noted, no wheezes, good air entry Abdomen: Soft, nontender, nondistended Extremities: Normal to inspection Skin: No rashes noted, no lesions or wounds seen Psych: Euthymic, normal affect DS: Data Data Completed and Pending Labs on day of discharge: Labs from last 24 hours 04/25/23 04/25/23 04/24/23 07:51 04:45 20:44 WBC 7.6 RBC 4.69 Hgb 15.0 Hct 43.6 MCV 93.0 MCH 32.0 MCHC 34.4 RDW 12.9 Plt Count 142 L MPV 10.1 Immature Gran % (Auto) 0.3 Neut % (Auto) 60.2 Lymph % (Auto) 26.7 [place] % (Auto) 9.5 H Eos % (Auto) 2.8 Baso % (Auto) 0.5 Lymph # (Auto) 2.02 [place] # (Auto) 0.7 H Eos # (Auto) 0.2 Baso # (Auto) 0.0 Abs Immat Gran (auto) 0.02 Absolute Neuts (auto) 4.6 Absolute Nucleated RBC 0.0
--- NOTE | 2023-04-25 10:11 | PM.PNCARD ---
Progress Note: A&P Assessment and Plan (1) Atrial fibrillation with rapid ventricular response: Code(s): I48.91 - Unspecified atrial fibrillation Status: Acute Assessment and Plan: New onset atrial fibrillation with rapid ventricular response. Chronicity of this arrhythmia is unknown as he is asymptomatic. Discussed management strategies for atrial fibrillation including rate control versus rhythm control. Rate was not controlled on metoprolol 25 mg PO Q6H, so this was increased to 50mg PO Q6H and added Diltiazem 60 mg PO Q6H. We had initially planned on JAMES guided cardioversion given uncontrolled rate, however, his rates are now well controlled with Metoprolol and Diltiazem. Therefore, after discussion with the patient and shared decision making, will not pursue JAMES guided DCCV today. Continue with rate control and will plan on outpatient elective cardioversion in 1 month after patient has been on uninterrupted anticoagulation for 1 month. Will have our office schedule this. Okay to discharge patient home today. Patient to be on: Metoprolol succinate 200mg QD Diltiazem 240mg PO QD Eliquis 5mg BID. (2) Obstructive sleep apnea on CPAP: Code(s): G47.33 - Obstructive sleep apnea (adult) (pediatric) Status: Acute Assessment and Plan: Continued compliance with CPAP Plan Recommendations/Plan discussed with the patient's RN and the Hospitalist, Dr. Mendoza. Will arrange for outpatient follow up and outpatient cardioversion in 1 month. Subjective Date/time seen: 04/25/23 10:11 Interval history: Reason for visit: Atrial fibrillation with RVR HPI: Mr. Kim Is a 72-year-old male with a past medical history of myasthenia gravis, pancreatitis, type 2 diabetes mellitus , and sleep apnea on CPAP.? He comes to the hospital because of rapid and irregular heart rate and rhythm noted by nurse performing a home visit for insurance.? He denies experiencing any palpitations, shortness of breath, chest pain.? He has no known cardiac history? Aside from being told that he has a murmur.? His heart rate is currently controlled on a combination of IV diltiazem and p.o. metoprolol.? Echocardiogram was performed that showed normal LV systolic function, severe biatrial enlargement, mild mitral valve regurgitation, and a trivial pericardial effusion.? Currently, he is sitting comfortably in the chair and does not have any complaints of any kind. Date of service 04/24: Heart rate remains poorly controlled, 110 to 130s, sometimes up to 150 beats per minute, taking metoprolol 25 mg q.6 hours.? Patient is sitting in a chair asymptomatic, somewhat anxious and upset that he has a heart problem when he has always felt healthy.? Many questions, hopefully answered to his satisfaction. Date of service 04/25: Started on PO Dilitazem 04/24, and now his heart rates are well controlled on PO Metoprolol and Diltiazem. Patient is feeling well. Review of Systems Review of Systems: All systems reviewed & are unremarkable except as noted in HPI and below (HPI) Exam Const: General: comfortable HENMT: Mouth: Yes moist mucous membranes Eyes: General: appearance normal, both eyes and all related structures Sclera: sclerae normal Neck: Neck: supple Resp: Effort & Inspection: normal respiratory effort Cardio: Rhythm: abnormal rhythm irregularly irregular Other: Rate controlled atrial fibrillation Skin: General skin exam: normal color Neuro: Speech: normal speech Psych: Mental Status: mental status grossly normal Affect: normal affect Objective Data Vital Signs Vital Signs: Vital Signs - 24 hr 04/24/23 11:32 04/24/23 11:51 04/24/23 12:00 Temperature 36.4 C L Pulse Rate 108 H 108 H 130 H Respiratory Rate 14 Blood Pressure 117/62 Pulse Oximetry 98 Oxygen Delivery 04/24/23 12:00 04/24/23 16:00 04/24/23 16:00 Temperature 36.3 C L Pulse Rate 99 94 Respiratory Rate 16 Blood Pressure
[2023-04-25] MEDS: dilTIAZem HCL CD 180 MG CAP.24HR PO (10:44)
[2023-04-25] MEDS: METOPROLOL SUCCINATE EXT REL 50 MG TABCR 150 MG PO (10:44)
[2023-04-25 12:37] LABS: Glucose Point of Care 281 mg/dl (65-105)
== END 2023-04-25 12:15 | disposition home or self-care (01) | DRG 310 ==
LOC: ANHED 13:35 → ANHIMU 16:55
PROVIDERS: Internal Medicine; Physician Assistant; Admitting Provider Hospitalist; Emergency Provider Emergency Medicine; PCP Family Medicine; Visit Provider Student in an Organized Health Care Education/Training Program
DX: I48.91 Unspecified atrial fibrillation (principal); E11.65 Type 2 diabetes mellitus with hyperglycemia; E78.5 Hyperlipidemia, unspecified; K21.9 Gastro-esophageal reflux disease without esophagitis; G70.00 Myasthenia gravis without (acute) exacerbation; G47.33 Obstructive sleep apnea (adult) (pediatric); F32.A Depression, unspecified; Z86.010 Personal history of colon polyps
CPT/HCPCS: 36415; 71045; 80048; 80053; 81003; 82948; 83036; 83735; 84100; 84443; 84484; 85025; 85027; 85610; 85730; 93005; 93306; 96365; 96366; 97165; 99285; A9270; G0378; J1815; J7030

== ENCOUNTER 2023-07-18 09:31 | Emergency (ER) | payer MEDICARE, SELFPAY ==
[2023-07-18] VITALS (17 sets, daily range): BP systolic 102–119; BP diastolic 62–98; PULSE 83–166; RESP 12–23; TEMP 36.8; O2SAT 92–98
--- NOTE | 2023-07-18 09:32 | ECG_ITS ---
Measurements Intervals [place] Rate: 143 P: [place]: 0 QRS: -24 QRSD: 88 T: 28 QT: 286 QTc: 441 Interpretive Statements ATRIAL FIBRILLATION WITH RAPID VENTRICULAR RESPONSE INFERIOR MYOCARDIAL INFARCTION , PROBABLY OLD [40+ ms Q WAVE AND/OR ST/T ABNORMALITY IN II/aVF] COMPARED TO ECG 04/22/2023 11:10:45 NO SIGNIFICANT FINDINGS Electronically Signed On 07-18-2023 15:04:35 CELL LEAD by Amalia Koehler M.D.
--- NOTE | 2023-07-18 09:34 | ED.ARRPALP ---
HPI - Arrhythmia/Palpitations General Chief Complaint: Arrhythmia/Palpitations <GAURI Anne Last Filed: 07/18/23 12:46> Stated Complaint: afib rvr <GAURI Anne Last Filed: 07/18/23 12:46> Time Seen by Provider: 07/18/23 09:33 <GAURI Anne Last Filed: 07/18/23 12:46> Source: patient <GAURI Anne Last Filed: 07/18/23 12:46> Mode of arrival: ambulatory <GAURI Anne Last Filed: 07/18/23 12:46> Limitations: no limitations <GAURI Anne Last Filed: 07/18/23 12:46> History of Present Illness HPI narrative: This is a 72-year-old male that presents to the emergency department for atrial fibrillation with rapid ventricular rate. Reports he has been having trouble with this recently. He does not have any symptoms with it. He has been monitoring his heart rate has been in the 130s. 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 He had tried upping his metoprolol dose without success. His EKG today showed that he was in atrial fibrillation with rapid ventricular rate. Was sent to the ER for further management. Denies chest pain, shortness of breath, or palpitations. <GAURI Anne Last Filed: 07/18/23 12:46> Related Data Home Medications: Home Medications Medication Instructions Recorded Confirmed Cialis 5 mg PO DAILY 11/23/20 04/22/23 clotrimazole 10 mg emilio 10 mg mucous membrane USEASDIRECTD 11/23/20 04/22/23 PRN Rash empagliflozin 25 mg tablet 25 mg PO DAILY 11/23/20 04/22/23 (Jardiance) ipratropium bromide 21 mcg (0.03 1 spray intranasal PRN PRN Nasal 11/23/20 04/22/23 %) nasal spray Congestion atorvastatin 10 mg tablet 10 mg PO HS 04/22/23 04/22/23 <GAURI Anne Last Filed: 07/18/23 12:46> Allergies/Adverse Reactions: Allergies Allergy/AdvReac Type Severity Reaction Status Date / Time No Known Allergies Allergy Verified 07/18/23 09:51 <Salud Summers PA-C - Last Filed: 07/18/23 12:46> Review of Systems Review of Systems: CONSTITUTIONAL: Denies fever CARDIOVASCULAR: Denies chest pain, palpitations RESPIRATORY: Denies dyspnea. <Salud Summers PA-C - Last Filed: 07/18/23 12:46> All systems reviewed & are unremarkable except as noted in HPI and below <Salud Summers PA-C - Last Filed: 07/18/23 12:46> [facility] Past Medical History Medical History: Medical History Adenomatous colon polyp Depression Gastroesophageal reflux disease Internal hemorrhoid Myasthenia gravis Obstructive sleep apnea on CPAP Pancreatitis (01/2023) Type 2 diabetes mellitus <Salud Summers PA-C - Last Filed: 07/18/23 12:46> Surgical History Surgical History: Surgical History (Updated 04/22/23 @ 21:35 by Nalini Parkinson PA-C) History of cataract extraction History of colonoscopy with polypectomy History of tonsillectomy <Salud Summers PA-C - Last Filed: 07/18/23 12:46> Family History Family History: Family History Father Cerebrovascular accident <Salud Summers PA-C - Last Filed: 07/18/23 12:46> Social History Social History: Social History (Updated 04/22/23 @ 21:35 by Nalini Parkinson PA-C) Social History: Surrogate medical decision maker: shadi Burnett. Code status: Full code. Smoking status: Never smoker Alcohol intake: never Substance use: never Substance use type: does not use Lack of Transportation: No Lack of Food: Never True Current Housing: I Have Housing Concerned About Future Housing: No Difficulty Paying Gas/Electric Bills: No Difficulty Paying for Meds: No Currently Unemployed: No Education: Bachelor's Degree Difficulty w/ Childcare or Family Care: No Living arrangements: alone Occupation/Education: retired Spiritual care concerns:
[2023-07-18] MEDS: dilTIAZem HCl INJ 25 MG/5 ML VIAL 10 MG IV PUSH (09:52)
[2023-07-18] MEDS: ASPIRIN 81 MG CHEWABLE TABLET 324 MG PO (09:52)
[2023-07-18] MEDS: SODIUM CHLORIDE 0.9% IV 1,000 ML 999 ML IV CONT (09:54)
[2023-07-18 09:59] LABS: Basophils Absolute Auto 0.1 K/mm3 (0.0-0.1); Basophils Percent Auto 0.7 % (0.2-1.2); Eosinophils Absolute Auto 0.2 K/mm3 (0-0.3); Eosinophils Percent Auto 1.9 % (0-4.4); Hematocrit 49.5 % (42.0-52.0); Hemoglobin 16.6 g/dL (14.0-18.0); Immature Granulocyte Absolute 0.01 K/mm3 (0.00-0.031); Immature Granulocyte Percent A 0.1 % (0-0.5); Lymphocytes Absolute Auto 2.39 K/mm3 (0.9-3.2); Lymphocytes Percent Auto 27.7 % (18.3-44.2); Mean Corpuscular HGB Conc 33.5 g/dl (32-36); Mean Corpuscular Hemoglobin 31.4 pg (26-34); Mean Corpuscular Volume 93.6 fl (80-100); Mean Platelet Volume 10.6 fl (7.4-10.4); Monocytes Absolute Auto 0.6 K/mm3 (0.1-0.6); Monocytes Percent Auto 7.2 % (2.6-8.5); Neutrophils Absolute Auto 5.4 K/mm3 (1.3-6.7); Neutrophils Percent Auto 62.4 % (45.5-73.1); Platelet Count Result 174 k/mm3 (150-375); Red Blood Count 5.29 M/mm3 (4.6-6.20); White Blood Count 8.6 K/mm3 (4.5-10.0)
[2023-07-18 10:11] LABS: INR 1.1; Prothrombin Time 15.3 Seconds (11.1-14.7)
[2023-07-18 10:12] LABS: Partial Thromboplastin Time 38.5 SECONDS (22.3-36.8)
[2023-07-18 10:13] LABS: Alanine Aminotransferase 34 U/L (6-50); Albumin Level 4.6 g/dL (3.5-5.1); Alkaline Phosphatase 67 U/L (38-126); Anion Gap 13 mmol/L (8-16); Aspartate Amino Transferase 26 U/L (17-59); Blood Urea Nitrogen 20 mg/dL (9-20); Calcium 9.5 mg/dL (8.4-10.2); Carbon Dioxide 23 mmol/L (22-30); Chloride 102 mmol/L (98-107); Estimated CRCL calculation 76 ml/min; Estimated Glomerular Filt Rate > 60; Glucose 361 mg/dL (65-110); Lipase 191 U/L (23-300); Potassium 4.2 mmol/L (3.4-5.0); Sodium 138 mmol/L (137-145)
[2023-07-18 10:24] LABS: Magnesium 2.4 mg/dL (1.6-2.3); Troponin I < 0.012 ng/mL (0.000-0.034)
[2023-07-18] MEDS: dilTIAZem 100 MG/100 ML 100 MG/100 ML BAG IV CONT (10:37)
--- NOTE | 2023-07-18 11:28 | ECG_ITS ---
Measurements Intervals [place] Rate: 87 P: 7 [place]: 171 QRS: -19 QRSD: 93 T: 3 QT: 370 QTc: 447 Interpretive Statements SINUS RHYTHM INFERIOR MYOCARDIAL INFARCTION , PROBABLY OLD [40+ ms Q WAVE AND/OR ST/T ABNORMALITY IN II/aVF] COMPARED TO ECG 07/18/2023 09:39:57 SINUS RHYTHM NOW PRESENT Electronically Signed On 07-18-2023 15:07:15 WIRE SAW OPERATOR by Amalia Koehler M.D.
== END 2023-07-18 11:46 | disposition home or self-care (01) ==
PROVIDERS: Emergency Provider Emergency Medicine; PCP Family Medicine
DX: I48.91 Unspecified atrial fibrillation (principal); E11.9 Type 2 diabetes mellitus without complications; K21.9 Gastro-esophageal reflux disease without esophagitis; G70.00 Myasthenia gravis without (acute) exacerbation; G47.33 Obstructive sleep apnea (adult) (pediatric); Z86.010 Personal history of colon polyps; Z98.49 Cataract extraction status, unspecified eye; Z79.84 Long term (current) use of oral hypoglycemic drugs; Z79.01 Long term (current) use of anticoagulants; R94.31 Abnormal electrocardiogram [ECG] [EKG]
CPT/HCPCS: 36415; 80053; 83690; 83735; 84484; 85025; 85610; 85730; 93005; 96361; 96365; 96376; 99284; A9270; J7030

== ENCOUNTER 2025-01-09 10:48 | Emergency (ER) | payer MEDICARE, SELFPAY ==
--- NOTE | ~2025-01-09 | US_ITS ---
EXAMINATION: US venous doppler [facility] DATE: 01/09/2025 12:08 INDICATION: Lower limb pain and swelling TECHNIQUE: Grayscale ultrasound images without and with compression and Doppler ultrasound images of the left lower extremity veins were obtained. COMPARISON: None. FINDINGS: The visualized portions of left common femoral vein, profunda (deep) femoral vein, femoral vein, popl iteal vein, peroneal veins, posterior tibial veins, gastrocnemius vein and greater saphenous vein out flow are patent. IMPRESSION: 1. No deep venous thrombosis in the left lower limb. Reviewed, dictated and finalized at location A.
[2025-01-09 10:49] VITALS: BP 136/84; PULSE 87; RESP 16; TEMP 36.3; O2SAT 100
--- NOTE | 2025-01-09 12:40 | ED_ITS ---
HPI - Extremity Problem General Chief complaint: Extremity Problem,Nontraumatic Stated complaint: LLE swelling and pain Time Seen by Provider: 01/09/25 12:17 Source: patient Mode of arrival: ambulatory Limitations: no limitations History of Present Illness HPI Narrative: Patient presents with concern for left lower extremity swelling, pain, and redness particularly over the past 24 hours. He has a history of DVT in the this extremity for which he is on Eliquis which he takes regularly 5 mg b.i.d.. No missed doses. He notes that earlier this week he did fall just before going on a bike ride but he did end up going on the bike ride for 7-11 miles. His ankle had been slightly swollen but he iced it and had not had issues since. In general he stays active by doing this as well as Javier Chi at the [facility]. He is diligent about this given the fact that he has diabetes mellitus. He also has a history of myasthenia gravis a but he is off any medications for this including being taken off steroids awhile ago because this affected his diabetes mellitus. He notes that earlier a week or so ago he was wearing too tight of shoes well walking around at [place] flea market [place] and did sustain a blister to the bottom of his left great toe and so he has been caring for that. He denies any pain throughout his foot ankle or lower extremity. Related Data Home Medications ?Medication ?Instructions ?Recorded ?Confirmed ?Last Taken ?Type Cialis 5 mg PO DAILY 11/23/20 12/25/24 04/21/23 History clotrimazole 10 mg emilio 10 mg mucous membrane USEASDIRECTD 11/23/20 12/25/24 03/13/23 08:00 History PRN Rash empagliflozin 25 mg tablet 25 mg PO DAILY 11/23/20 12/25/24 04/22/23 History (Jardiance) ipratropium bromide 21 mcg (0.03 1 spray intranasal PRN PRN Nasal 11/23/20 12/25/24 03/13/23 08:00 History %) nasal spray Congestion atorvastatin 10 mg tablet 10 mg PO HS 04/22/23 12/25/24 04/21/23 History metoprolol succinate 200 mg 100 mg PO DAILY 12/24/23 12/25/24 Unknown History tablet,extended release 24 hr pyridostigmine bromide 60 mg 60 mg PO TID PRN myasthenia gravis 12/24/23 12/25/24 Unknown History tablet (Mestinon) metformin 500 mg tablet 500 mg PO BID 04/16/24 12/25/24 Unknown History Allergies Allergy/AdvReac Type Severity Reaction Status Date / Time No Known Allergies Allergy Verified 01/09/25 10:52 [facility] Past Medical History Medical History (Updated 01/10/25 @ 06:17 by Lynn You MD) Chronic anticoagulation Deep vein thrombosis of left lower extremity Depression Adenomatous colon polyp Gastroesophageal reflux disease Pancreatitis (01/2023) Obstructive sleep apnea on CPAP Type 2 diabetes mellitus Internal hemorrhoid Myasthenia gravis Surgical History Surgical History History of cataract extraction History of tonsillectomy History of colonoscopy with polypectomy Family History Family History Father Cerebrovascular accident Social History Social History Social History: Stays active (walks, rides bike, does Javier chi at the [facility]) Surrogate medical decision maker: shadi Burnett. Code status: Full code. Smoking status: Never smoker Alcohol intake: never Substance use: never Substance use type: does not use Do You Feel Safe in your Home?: Yes Lack of Transportation: No Lack of Food: Never True Current Housing: I Have Housing Concerned About Future Housing: No Difficulty Paying Gas/Electric Bills: No Difficulty Paying for Meds: No Currently Unemployed: No Education: Bachelor's Degree Difficulty w/ Childcare or Family Care: No Living arrangements: alone Occupation/Education: retired Spiritual care concerns: No Exam 2 Narrative: GENERAL: Well-appearing, well-nourished, and in no acute distress. HEAD: Normocephalic, atraumatic. EYES: Non injected, non icteric ENT: Nares clear, no rhinorrhea or epistaxis. Gross auditory acuity intact. NECK: Supple. No meningismus. CHEST: Speaking in full sentences. No respiratory distress. HEART: Regular rate and rhythm. . ABDOMEN: Soft, nondistended. No rigidity or guarding. Not peritoneal EXTREMITIES: Normal range of motion. Left lower extremity edema. SKIN: Warm, dry. Patient has an unroofed blister with wound along the plantar aspect of left great toe which has redness but otherwise without erythema or induration of the surrounding tissue. No purulent discharge at this wound. Patient does have some erythema and shiny skin that is warmer to the touch than surrounding area is located at the left anterior surface of leg as well as between digits 1 and 2 of the left foot. NEURO: No focal deficits. Alert and oriented. Answering questions. Following commands. Normal speech without aphasia or dysarthria. PSYCH: Normal mood and affect. Course Vital Signs Vital signs: Vital Signs Temperature 97.4 F L 01/09/25 10:49 Pulse Rate 87 01/09/25 10:49 Respiratory Rate 16 01/09/25 10:49 Blood Pressure 136/84 01/09/25 10:49 Pulse Oximetry 100 01/09/25 10:49 Temperature 97.4 F L 01/09/25 10:49 Pulse Rate 65 01/09/25 13:28 Respiratory Rate 16 01/09/25 13:28 Blood Pressure 122/83 01/09/25 13:28 Pulse Oximetry 95 01/09/25 13:28 MDM - Extremity (Nontraumatic) MDM Narrative Medical decision making narrative: Patient presents with concern for left lower extremity swelling and pain. He has a history of DVT in this leg for which he takes Eliquis. In the emergency department they are afebrile with vital signs within normal limits. Ultrasound study ordered from triage is negative. Patient otherwise denies any pain. Will defer obtaining Xray imaging as other etiologies more likely. In particular, the erythematous areas that are warm to the touch appear to be cellulitis. Area of erythema is outlined with a skin pen at approximately 1:40pm. BNP mildly elevated but not to a degree to suggest acute heart failure especially for the reference range of the assay for patient's age. Hyperglycemia without anion gap acidosis. CBC unremarkable without leukocytosis or anemia. Reasonable to trial conservative p.o. treatment outpatient. Patient given 1st dose of cephalexin in the emergency department with the rest of a 5 day course prescribed. We did extensively discuss the emergency department return precautions and he verifies understanding and is in agreement. Differential Diagnosis Differential diagnosis: Likely superficial thrombophlebitis, deep vein thrombosis of lower extremity and other (Superficial wounds, diabetic foot wounds, cellulitis/abscess) Lab Data Attestation: I reviewed the patient's lab results. 01/09/25 13:06 01/09/25 13:06 Labs: Lab Results 01/09/25 Range/Units 13:06 WBC 9.1 (4.5-10.0) K/mm3 RBC 4.64 (4.6-6.20) M/mm3 Hgb 14.7 (14.0-18.0) g/dL Hct 42.4 (42.0-52.0) % MCV 91.4 (80-100) fl MCH 31.7 (26-34) pg MCHC 34.7 (32-36) g/dl RDW 13.0 (11.5-14.5) % Plt Count 160 (150-375) k/mm3 MPV 9.8 (7.4-10.4) fl Immature Gran % (Auto) 0.2 (0-0.5) % Neut % (Auto) 66.0 (45.5-73.1) % Lymph % (Auto) 23.0 (18.3-44.2) % [place] % (Auto) 7.8 (2.6-8.5) % Eos % (Auto) 2.6 (0-4.4) % Baso % (Auto) 0.4 (0.2-1.2) % Lymph # (Auto) 2.09 (0.9-3.2) K/mm3 [place] # (Auto) 0.7 H (0.1-0.6) K/mm3 Eos # (Auto) 0.2 (0-0.3) K/mm3 Baso # (Auto) 0.0 (0.0-0.1) K/mm3 Abs Immat Gran (auto) 0.02 (0.00-0.031) K/mm3 Absolute Neuts (auto) 6.0 (1.3-6.7) K/mm3 Absolute Nucleated RBC 0.000 (0.0-0.012) K/mm3 Nucleated RBC % 0.0 (0.0-0.2) % ESR 18 (0-20) mm/hr Sodium 139 (137-145) mmol/L Potassium 3.9 (3.4-5.0) mmol/L Chloride 108 H (98-107) mmol/L Carbon Dioxide 21 L (22-30) mmol/L Anion Gap 10 (4-12) mmol/L BUN 14 D (9-20) mg/dL Creatinine 0.81 (0.7-1.3) mg/dL Estim Creat Clear Calc 91 ml/min Estimated GFR > 60 (59 - ) Glucose 145 H (65-110) mg/dL Lactic Acid 1.0 (0.7-2.0) mmol/L Calcium 8.9 (8.4-10.2) mg/dL Total Creatine Kinase 51 L (55-170) U/L C-Reactive Protein < 0.5 (<1.0) mg/dL NT-Pro-B Natriuret Pep 198 H (19.9-100) pg/mL Imaging Data Radiologist's impression: Impressions Venous Doppler Study 01/09/25 12:34 IMPRESSION: 1. No deep venous thrombosis in the left lower limb. Discharge Plan Discharge Clinical Impression: Hyperglycemia due to diabetes mellitus, Cellulitis of left lower leg Patient Disposition: Home Condition: Stable Instructions: Antibiotic Form, Cellulitis (ED), Diabetic Hyperglycemia (ED) Additional Instructions: You received the 1st dose of your antibiotic in the emergency department and the rest of the course has been prescribed. Take the entire course. Follow-up with your primary care physician. If you do not have 1 the name of the doctors listed below. Return to the emergency department with any new, worsening, or unmanaged symptoms such as spreading redness/swelling, pain, etc Continue taking your other medications as prescribed. Patient Language: Mohawk Prescriptions: New cephalexin 500 mg capsule 500 mg PO Q6H 5 Days Qty: 19 0RF Rx Instructions: received first dose in ED approx 2pm 01/09/25 No Action omeprazole 20 mg capsule,delayed release(DR/EC) 20 mg PO DAILY Qty: 60 12RF metformin 500 mg tablet 500 mg PO BID metoprolol succinate 200 mg tablet extended release 24 hr 100 mg PO DAILY pyridostigmine bromide [Mestinon] 60 mg tablet 60 mg PO TID PRN (Reason: myasthenia gravis) Patient Comments: Only emergency clotrimazole 10 mg emilio 10 mg mucous membrane USEASDIRECTD PRN (Reason: Rash) Rx Instructions: 5x a day ipratropium bromide 21 mcg (0.03 %) spray,non-aerosol 1 spray INTRANASAL PRN PRN (Reason: Nasal Congestion) Jardiance 25 mg tablet 25 mg PO DAILY Cialis capsule 5 mg PO DAILY atorvastatin 10 mg tablet 10 mg PO HS Eliquis 5 mg Tablet 5 mg PO Q12HR 30 Days Qty: 60 0RF Follow-up/Referrals: Usama Veras MD [Physician] - UNKNOWN,DOCTOR [Primary Care Provider] - Time of Disposition: 13:58
[2025-01-09 13:16] LABS: Basophils Percent Auto 0.4 % (0.2-1.2); Eosinophils Absolute Auto 0.2 K/mm3 (0-0.3); Eosinophils Percent Auto 2.6 % (0-4.4); Hematocrit 42.4 % (42.0-52.0); Hemoglobin 14.7 g/dL (14.0-18.0); Immature Granulocyte Absolute 0.02 K/mm3 (0.00-0.031); Immature Granulocyte Percent A 0.2 % (0-0.5); Lymphocytes Absolute Auto 2.09 K/mm3 (0.9-3.2); Mean Corpuscular HGB Conc 34.7 g/dl (32-36); Mean Corpuscular Hemoglobin 31.7 pg (26-34); Mean Corpuscular Volume 91.4 fl (80-100); Mean Platelet Volume 9.8 fl (7.4-10.4); Monocytes Absolute Auto 0.7 K/mm3 (0.1-0.6); Monocytes Percent Auto 7.8 % (2.6-8.5); Platelet Count Result 160 k/mm3 (150-375); Red Blood Count 4.64 M/mm3 (4.6-6.20); White Blood Count 9.1 K/mm3 (4.5-10.0)
[2025-01-09 13:28] VITALS: BP 122/83; PULSE 65; RESP 16; O2SAT 95
[2025-01-09 13:29] LABS: Anion Gap 10 mmol/L (4-12); Blood Urea Nitrogen 14 mg/dL (9-20); CRP < 0.5 mg/dL (<1.0); Calcium 8.9 mg/dL (8.4-10.2); Carbon Dioxide 21 mmol/L (22-30); Chloride 108 mmol/L (98-107); Creatine Kinase 51 U/L (55-170); Estimated CRCL calculation 91 ml/min; Estimated Glomerular Filt Rate > 60; Glucose 145 mg/dL (65-110); Potassium 3.9 mmol/L (3.4-5.0); Sodium 139 mmol/L (137-145)
[2025-01-09 13:36] LABS: NT Pro B Type Natriuretic Pept 198 pg/mL (19.9-100)
[2025-01-09 13:59] LABS: Erythrocyte Sedimentation Rate 18 mm/hr (0-20)
[2025-01-09] MEDS: CEPHALEXIN 500 MG CAPSULE PO (14:35)
== END 2025-01-09 14:38 | disposition home or self-care (01) ==
PROVIDERS: Emergency Provider Student in an Organized Health Care Education/Training Program
DX: L03.116 Cellulitis of left lower limb (principal); E11.65 Type 2 diabetes mellitus with hyperglycemia; K21.9 Gastro-esophageal reflux disease without esophagitis; G70.00 Myasthenia gravis without (acute) exacerbation; G47.33 Obstructive sleep apnea (adult) (pediatric); F32.A Depression, unspecified; Z98.49 Cataract extraction status, unspecified eye; Z86.718 Personal history of other venous thrombosis and embolism; Z86.0101 Personal history of adenomatous and serrated colon polyps; Z79.01 Long term (current) use of anticoagulants; Z79.84 Long term (current) use of oral hypoglycemic drugs; Z79.899 Other long term (current) drug therapy
CPT/HCPCS: 36415; 80048; 82550; 83605; 83880; 85025; 85652; 86140; 87040; 93971; 99284; A9270

== ENCOUNTER 2025-03-30 08:32 | Outpatient (CLI) | payer MEDICARE, SELFPAY ==
--- NOTE | ~2025-03-30 | US_ITS ---
EXAMINATION: US arterial duplex LE DATE: 03/30/2025 09:58 INDICATION: Bilateral lower limb pain and peripheral vascular disease TECHNIQUE: Multiple grayscale and Doppler ultrasound images of the arteries of the bilateral lower limbs were obtained. COMPARISON: None FINDINGS: Normal triphasic waveforms with brisk systolic upstrokes at the right external iliac, common femoral, superficial femoral, profunda femoral, popliteal, posterior tibial, peroneal and dorsalis pedis arteries. Biphasic waveforms with brisk systolic upstrokes at the right anterior tibial artery. Small amounts of scattered nonhemodynamically significant atherosclerotic plaque within these arteries on grayscale imaging. Normal triphasic waveforms with brisk systolic upstrokes at the left external iliac, common femoral, superficial femoral, profunda femoral, popliteal, posterior tibial, peroneal, dorsalis pedis and anterior tibial arteries. Small amounts of scattered nonhemodynamically significant atherosclerotic plaque within these arteries on grayscale imaging. IMPRESSION: 1. Biphasic waveform at the right anterior tibial artery and triphasic waveforms throughout the remaining arteries of the bilateral lower limbs, all with brisk systolic upstrokes and without evident hemodynamically significant stenosis on grayscale imaging. Reviewed, dictated and finalized at location A. IMPRESSION: 1. Biphasic waveform at the right anterior tibial artery and triphasic waveform s throughout the remaining arteries of the bilateral lower limbs, all with bris k systolic upstrokes and without evident hemodynamically significant stenosis o n grayscale imaging.
--- OUTSIDE RECORDS SUMMARY | 2025-03-30 09:00 | XMS_ITS | Clinical Summary ---
Author Organization [facility] Address [address] [place] [address] Care Team Providers Care Employee Benefits Insurance Agent Name Role Phone Vincent Cardoza Primary Care Provider + Allergies Active Allergy Reactions Criticality Noted Date Comments Prednisone Unknown 10/19/2024 Medications ipratropium (ATROVENT) 21 mcg (0.03 %) nasal spray ipratropium bromide 21 mcg (0.03 %) nasal spray SPRAY 2 SPRAYS INTO EACH NOSTRIL TWICE A DAY Active tadalafiL (CIALIS) 5 mg tablet tadalafil 5 mg tablet 04/22/20 19 Active ascorbic acid (VITAMIN C) 1,000 mg tablet Vitamin C 1,000 mg tablet Take by oral route. 04/22/20 19 Active atorvastatin (LIPITOR) 10 mg tablet Take 1 tablet (10 mg total) by mouth daily 04/05/20 22 Active clotrimazole-b etamethasone (LOTRISONE) cream clotrimazole-be tamethasone 1 %-0.05 % topical cream Active empagliflozin (JARDIANCE) 25 mg tablet Jardiance 25 mg tablet TAKE 1 TABLET BY MOUTH DAILY Active triamcinolone (KENALOG) 0.1 % ointment APPLY THIN COAT TO AFFECTED AREA TWICE A DAY 06/14/20 23 Active omeprazole (PriLOSEC) 20 mg capsule Take 1 capsule (20 mg total) by mouth as needed 05/06/20 23 Active fenofibrate (TRIGLIDE) 160 mg tablet Take 1 tablet (160 mg total) by mouth daily 08/12/19 25 Active oxyBUTYnin XL (DITROPAN-XL) 5 mg 24 hr tablet Take 1 tablet (5 mg total) by mouth daily 08/03/19 25 Active pyRIDostigmine (MESTINON) 60 mg tablet TAKE 1 TABLET BY MOUTH THREE TIMES DAILY NEEDED FOR MYASTHENIA GRAVIS Active metFORMIN XR (GLUCOPHAGE XR) 500 mg 24 hr tabletIndicati ons:Type 2 diabetes mellitus with hyperglycemia, without long-term current use of insulin (HCC) Take 2 tablets (1,000 mg total) by mouth 2 (two) times a day with meals 360 tablet 1 10/20/19 25 025 Active glipiZIDE (GLUCOTROL) 5 mg tabletIndicati ons:Type 2 diabetes mellitus with hyperglycemia, without long-term current use of insulin (HCC) TAKE 1 TABLET BY MOUTH 2 TIMES A DAY WITH MEALS. 180 tablet 1 01/21/20 25 Active ciprofloxacin (CIPRO) 500 mg tablet 01/27/20 25 Active metoprolol XL (TOPROL-XL) 100 mg 24 hr tablet TAKE 1 TABLET BY MOUTH EVERY DAY 90 tablet 03/01/20 25 Active Eliquis 5 mg tablet TAKE 1 TABLET BY MOUTH TWICE A DAY 180 tablet 2 03/23/20 25 Active metoprolol XL (TOPROL-XL) 100 mg 24 hr tablet Take 1 tablet (100 mg total) by mouth daily 90 tablet 3 12/18/19 24 025 Discontinued Eliquis 5 mg tablet Take 1 tablet (5 mg total) by mouth 2 (two) times a day 180 tablet 2 04/30/20 24 025 Discontinued Active Problems Problem Noted Date Diagnosed Date Skin ulcer of left great toe with fat layer expo sed 01/26/2025 Assessment & Plan (01/26/2025 11:21 AM CDT): New problem (12/2024). Seeing podiatry Dr Demian Marrufo. Has L foot MRI 02/10/25. Currently taking cipro 500mg bid. Has appt w/Dr Marrufo again Saturday02/01/25. Dr Marrufo is setting him up with ID and possible IV abx. Type 2 diabetes mellitus wit h hyperglycemia, without long-term current use of insulin 10/19/2024 Assessment & Plan (01/26/2025 10:55 AM CDT): Chronic problem. A1c not at goal but improved from 10.7% 10/19/24 to now 7.6%. Current medications: Metformin XR 1000mg twice daily with meals Jardiance 25mg daily Glipizide 5 mg twice daily (Breakfast & dinner) UTD on DM eye exam (02/06/24 no [facility]) UTD on labs. Discussed with Sudarshan Kim: Strive for regular exercise (30min most days) and diet (get at least 4-5 servings of fruit and veggies daily, avoid processed foods, increase lean protein intake and decrease carb portions as well as fruit juices, regular soda & desserts). Watch carbs and simple sugars. Check the blood sugar. Check the feet daily for skin breakdown and infection. Class 1 obesity due to exces s calories with serious comorbidity and body mass index (BMI) of 30.0 to 30.9 in adult 10/19/2024 History of pancreatitis 10/19/2024 Chronic anticoagulation 02/07/2024 Hyperlipidemia associated with type 2 diabetes m radha 02/07/2024 Assessment & Plan (01/26/2025 10:54 AM CDT): Chronic problem. Currently taking Atorvastatin 10mg daily. Last lipid panel: 09/01/24 LDL=70, OP=048. Paroxysmal atrial fibrillation 08/07/2023 Myasthenia gravis 05/30/2022 Encounters Date Type Department Care Team Description 01/26/2025 11:00 AM CDT Office Visit [facility] [address] [place] [id number] Ana Chauhan, FELICIA Type 2 diabetes mellitus with hyperglycemia, without long-term current use of insulin (HCC) (Primary Dx); Hyperlipidemia associated with type 2 diabetes mellitus (HCC); Skin ulcer of left great toe with fat layer exposed (HCC) from Last 3 Months Surgical History Surgery Date Site/Laterality Comments CATARACT EXTRACTION 09/2018 COLONOSCOPY Medical History Medical History Date Comments Cataract 09/2018 Diabetes mellitus (HCC) 03/2000 Sleep apnea 03/2000 Autoimmune disease 10/2019 Atrial fibrillation (HCC) 04/22/2023 Family History Medical History Relation Name Comments Stroke Father Al Diabetes Maternal Grandfather Ray Arthritis Mother Alvina/Al Diabetes Mother's Brother Bryan Stroke Paternal Grandmother Bernadine Relation Name Status Comments Father Al Maternal Grandfather Ray Mother Alvina/Al Mother's Brother Bryan Paternal Grandmother Bernadine Social History Tobacco Use Types Packs/Day Years Used Date Smoking Tobacco: Never Tobacco Cessation:Counseling Given: Not Answered Sex and Gender Information Value Date Recorded Sex Assigned at Not on file Legal Sex Male 3:49 PM BUSINESS SUPPORT ASSOCIATE Gender Identity Male 05/29/2022 9:03 AM BUSINESS SUPPORT ASSOCIATE Sexual Orientation Not on file Obstetrics History Last Filed Vital Signs Vital Sign Reading Time Taken Comments Blood Pressure 110/70 01/26/2025 10:45 AM CDT Pulse 65 01/26/2025 10:45 AM CDT Temperature 36.9 C (98.5 F) 11/08/2021 8:23 AM CDT Respiratory Rate 18 01/26/2025 10:45 AM CDT Oxygen Saturation 96% 08/14/2024 10:30 AM BUSINESS SUPPORT ASSOCIATE Inhaled Oxygen Concentration - - Weight 107 kg (236 lb) 01/26/2025 10:45 AM CDT Height 185.4 cm (6' 0.99) 01/26/2025 10:45 AM C DT Body Mass Index 31.14 01/26/2025 10:45 AM CDT Plan of Treatment Health Maintenance Due Date Last Done Comments Colon Cancer Screening-Colonoscopy 1950 Depression Screening 1950 Fall Risk Assessment 1950 Hepatitis C Screening 1950 DTaP/Tdap/Td Vaccine (1 - Tdap) 10/26/1962 Hepatitis B Screening 10/26/1969 Zoster Vaccine (1 of 2) 10/26/2001 Well Visit 65+ 10/26/2016 Covid-19 Vaccine ( - 2024-2 6 season) 2025 10/12/2020, 09/14/2020 Influenza Vaccine (#1) 2025 , 04/15/2019, 04/08/2018, Additional history exists Hemoglobin A1C 07/29/2025 01/26/2025, 10/19/2024 Lipid Panel 09/01/2025 09/01/2024, 2 10/2024, 06/28/2023 Albumin Creatinine Ratio, Urine 10/19/2025 eGFR 10/19/2025 10/19/2024, 11/08/2021 Foot Exam 01/26/2026 01/26/2025 Dilated Eye Exam 02/05/2026 02/06/2024 Pneumococcal vaccine 65+ Completed 020, 04/08/2018, 04/07/2018 Procedures Procedure Name Priority Date/Time Associated Diagnosis Comments POCT GLUCOSE Routine 01/26/2025 10:48 AM CDT Type 2 diabetes mellitus with hyperglycemia, without long-term current use of insulin (HCC) POCT HEMOGLOBIN A1C Routine 01/26/2025 1 0:48 AM CDT Type 2 diabetes mellitus with hyperglycemia, without long-term current use of insulin (HCC) EGFR Routine 10/19/2024 9:06 AM CDT Type 2 diabetes mellitus with hyperglycemia, without long-term current use of insulin (HCC) ALBUMIN CREATININE RATIO, URINE Routine 10/19/2024 9:06 AM CDT Type 2 diabetes mellitus with hyperglycemia, without long-term current use of insulin (HCC) LIPID PANEL Routine 09/01/2024 3:43 PM BUSINESS SUPPORT ASSOCIATE HM DIABETES EYE EXAM Routine 02/06/2024 2:50 PM CDT from Last 3 Months or Most Recently Relevant to Health Maintenance Results * (ABNORMAL) POCT hemoglobin A1c (01/26/2025 10:48 AM CDT) Hemoglobin A1C, POC 7.6(A) 4.0 - 5.6 % Blood 01/26/2025 10:4 8 AM CDT us Ana Chauhan NP POINT OF CARE TEST ORDERA BLES Final Result * (ABNORMAL) POCT glucose (01/26/2025 10:48 AM CDT) Pathologist [facility] Glucose Blood, POC 161 Normal Fasting 70 - 100, Random <200 mg/dL Blood 01/26/2025 10:4 8 AM CDT us Ana Chauhan NP POINT OF CARE TEST ORDERA BLES Final Result * eGFR (10/19/2024 9:06 AM CDT) Pathologist [facility] eGFR >90 >=60 mL/min/1. 73 m2 Comment: Interpretive Data Reference Interval Normal >/= 90 mL/min/1.73m2 Mildly decreased* 60 - 89 mL/min/1.73m2 Mildly to moderately decreased 45 - 59 mL/min/1.73m2 Moderately to severely decreased 30 - 44 mL/min/1.73m2 Severely decreased 15 - 29 mL/min/1.73m2 Kidney Failure < 15 mL/min/1.73m2 *Relative to young adult level Estimated glomerular filtration rate is determined by the 2020 CKD-EPI equation recommended by the National Kidney Foundation (A Unifying Approach to GFR Estimation: Recommendations of the NKF-ASK Task Force on Reassessing the Inclusion of Race in Diagnosing Kidney Disease, JASN 2020). The CKD-EPI equation should not be used for patients with unstable renal function and has not been validated in children and those over 70. Current interpretive data was last reviewed 2021. Blood 10/19/2024 9:06 AM CDT 10/20/2024 12:14 PM CDT Kentrell Langley MD LAB BLOOD ORDERABLE S Final Result [facility] [id number] Department [place] [address] * Albumin Creatinine Ratio, Urine (10/19/2024 9:06 AM CDT) Pathologist [facility] Albumin Ur <12.0 mg/L Comment: Interpretive Data No reference range established. Current interpretive data was last revised 2018. Creatinine Ur 43.5 mg/dL [facility] Comment: Interpretive Data No reference range established. Current interpretive data was last revised 2018. Albumin Creatinine Ratio, Ur <28 1 - 29 mg/g [facility] Urine 10/19/2024 9:0 6 AM CDT 10/20/2024 12:02 PM CDT Kentrell Langley MD LAB URINE ORDERABLE S Final Result [facility] [id number] Department [place] [address] * (ABNORMAL) Lipid panel (09/01/2024 3:43 PM BUSINESS SUPPORT ASSOCIATE) SCRIBED Cholesterol, Total 166 < - 200 EXTERNAL LAB SCRIBED HDL 41(A) > - 40 EXTERNAL LAB SCRIBED LDL 70 < - 100 EXTERNAL LAB SCRIBED Triglycerides 275(A) < - 150 EXTERNAL LAB Blood Historical Provider LAB BLOOD ORDERABLES Edit ed Result - Final EXTERNAL LAB * DIABETES EYE EXAM (02/06/2024 2:50 PM CDT) Historical Provider HEALTH MAINTENANCE Final Result from Last 3 Months or Most Recently Relevant to Health Maintenance Insurance [employer] [facility] AETNA MEDICARE [facility] Care Teams Employee Benefits Insurance Agent Relationship Specialty Start Date End Date Vincent Cardoza PA [facility] [place] [address] PCP - General Internal Medicine 08/14/24
--- OUTSIDE RECORDS SUMMARY | 2025-03-30 09:00 | XMS_ITS | Clinical Summary ---
Author Organization [facility] Address [address] [place] [address] Phone Care Team Providers Care Small Arms Repairer Name Role Phone Unavailable Primary Care Provider Unavailabl e Allergies No known active allergies Encounters Date Type Department Care Team Description 03/02/2025 External Device Data [facility] ABSTRACTION Provider, Abstract 03/02/2025 External Device Data [facility] ABSTRACTION Provider, Abstract 03/02/2025 External Device Data [facility] ABSTRACTION Provider, Abstract 02/24/2025 6:55 AM CDT - 02/24/2025 8:53 AM CDT Hospital Encounter [facility] [id number] [place] [address] Pham Mcintosh MD Other acute osteomyelitis, left ankle and foot (CMS/HCC) Discharge Disposition: Home or Self Care from Last 3 Months Social History Tobacco Use Types Packs/Day Years Used Date Smoking Tobacco: Never Assessed Feeling Safe Answer Date Recorded Are you in a relationship wi th someone who hurts you emotionally and/or physically? No 02/24/2025 Sex and Gender Information Value Date Recorded Sex Assigned at Not on file Legal Sex Male 9:27 AM CDT Gender Identity Not on file Sexual Orientation Not on file Last Filed Vital Signs Vital Sign Reading Time Taken Comments Blood Pressure 129/82 02/24/2025 8:35 AM CDT Pulse 66 02/24/2025 8:35 AM CDT Temperature 36.9 C (98.5 F) 02/24/2025 7:13 AM CDT Respiratory Rate 18 02/24/2025 8:35 AM CDT Oxygen Saturation 98% 02/24/2025 8:35 AM CDT Inhaled Oxygen Concentration - - Weight 104.3 kg (230 lb) 02/24/2025 7:16 AM CDT Height 185.4 cm (6' 1) 02/24/2025 7:16 AM CDT Body Mass Index 30.34 02/24/2025 7:16 AM CDT Plan of Treatment Health Maintenance Due Date Last Done Comments DTAP/TDAP/TD VACCINES (1 - Tdap) 10/26/1970 COLORECTAL SCREENING 10/26/1996 Colorectal Cancer Screening 10/26/1996 FIT-DNA Q 3 years 10/26/1996 FIT/FOBT Q 1 year 10/26/1996 Flex Sig/CT Colonography Q 5 years 10/26/1996 PNEUMOCOCCAL VACCINE 50+ YEARS (1 of 1 - PCV) 10/27/19 02 ZOSTER VACCINE (1 of 2) 10/26/2001 INFLUENZA VACCINE (#1) 2025 RSV VACCINE (60+ or ) (1 - 1-dose 75+ series) 10/26/2026 Procedures Procedure Name Priority Date/Time Associated Diagnosis Comments IR VENOUS ACCESS Routine 02/24/2025 8:30 AM CDT Other acute osteomyelitis, left ankle and foot (CMS/HCC) from Last 3 Months Results * IR VENOUS ACCESS (02/24/2025 8:30 AM CDT) Anatomical Region Laterality Modality X-Ray Angiograph y 02/24/2025 6:58 AM CDT Impressions 02/24/2025 11:05 AM CDT IMPRESSION: Successful ultrasound guided right arm 5 Omani dual lumen Power Injectable PICC placement. DICTATION LOCATION: Location [facility] 02/24/2025 11:05 AM CDT PERCUTANEOUS INSERTION OF CENTRAL VENOUS CATHETER - PICC ULTRASOUND GUIDANCE WITH PERMANENT RECORDING OF VEIN EVALUATION DATE: 02/24/2025 8:30 AM HISTORY: Left great toe acute osteomyelitis, left ankle and foot (CMS/HCC) ATTENDING RADIOLOGIST: Gabrielle Sauceda MD PROCEDURE: Ultrasound guidance, fluoroscopy and upper extremity PICC placement. DESCRIPTION OF PROCEDURE: A time out was performed. Maximum sterile technique was utilized including cooler operator and orthopedic physician assistant hat, mask, sterile gown and gloves with two minute cooler operator scrub followed by 2% chlorhexidine skin prep and large drapes with maximum sterile barrier. Using high resolution ultrasound, the veins of the right upper extremity were evaluated from the antecubital space to the axilla. The visualized veins were patent and compressible. Permanent recording of ultrasound images was performed in PACS with documentation of direct ultrasound visualization of the patent vein accessed. The arm was prepped and draped in sterile fashion. 1% Lidocaine was used for local skin anesthesia. Subsequently the right brachial vein was punctured directly under ultrasound guidance and a dual lumen peripherally inserted central venous catheter was placed with its tip in the distal superior vena cava. The catheter was trimmed to 45 cm in length. The tip's position was confirmed under fluoroscopy and a digital spot image. FINDINGS: The veins of the right upper extremity, which were evaluated with ultrasound, were readily compressible and free of thrombus. The PICC has its tip within the distal superior vena cava. The fluoroscopy time was 0.4 minute and reference air kerma dose five mGy. Procedure Note Rigoberto Sauceda MD - 02/24/2025 PERCUTANEOUS INSERTION OF CENTRAL VENOUS CATHETER - PICC ULTRASOUND GUIDANCE WITH PERMANENT RECORDING OF VEIN EVALUATION DATE: 02/24/2025 8:30 AM HISTORY: Left great toe acute osteomyelitis, left ankle and foot (CMS/HCC) ATTENDING RADIOLOGIST: Gabrielle Sauceda MD PROCEDURE: Ultrasound guidance, fluoroscopy and upper extremity PICC placement. DESCRIPTION OF PROCEDURE: A time out was performed. Maximum sterile technique was utilized including cooler operator and orthopedic physician assistant hat, mask, sterile gown and gloves with two minute cooler operator scrub followed by 2% chlorhexidine skin prep and large drapes with maximum sterile barrier. Using high resolution ultrasound, the veins of the right upper extremity were evaluated from the antecubital space to the axilla. The visualized veins were patent and compressible. Permanent recording of ultrasound images was performed in PACS with documentation of direct ultrasound visualization of the patent vein accessed. The arm was prepped and draped in sterile fashion. 1% Lidocaine was used for local skin anesthesia. Subsequently the right brachial vein was punctured directly under ultrasound guidance and a dual lumen peripherally inserted central venous catheter was placed with its tip in the distal superior vena cava. The catheter was trimmed to 45 cm in length. The tip's position was confirmed under fluoroscopy and a digital spot image. FINDINGS: The veins of the right upper extremity, which were evaluated with ultrasound, were readily compressible and free of thrombus. The PICC has its tip within the distal superior vena cava. The fluoroscopy time was 0.4 minute and reference air kerma dose five mGy. IMPRESSION: Successful ultrasound guided right arm 5 [place]mani dual lumen Power Injectable PICC placement. DICTATION LOCATION: Location [address] [place] [address] us Pham Mcintosh MD IR ORDERABLES Final Result from Last 3 Months Insurance [employer] [facility]
== END 2025-03-30 08:33 | disposition home or self-care (01) ==
PROVIDERS: Visit Provider Podiatrist Foot & Ankle Surgery
DX: I73.9 Peripheral vascular disease, unspecified (principal)
CPT/HCPCS: 93925